=== PATIENT | male | born 1985 | race Caucasian/White ===

== ENCOUNTER 2016-12-04 22:05 | Emergency (ER) | payer BC, OTHER ==
[~2016-12-04] VITALS: Ht 177.8 cm; Wt 93.0 kg
[~2016-12-04 22:05] MED LIST: ATEN25TA PO; BACL10TA PO; BUTA1TAB46 PO; CIPR-225 PO; DOCU-143 PO; HYDR-3812 PO; HYDR-3820 PO; LISI-552 PO; LORA-790 PO; ONDAN4ODT PO; OXYC30TA80 PO
[2016-12-04] MEDS ORDERED: TETANUS,DIPTH,PERTUSS P/F (BOOSTRIX) 0.5 ML VIAL IM ONE (22:30)
[2016-12-04] MEDS ORDERED: CLINDAMYCIN 150 MG (CLEOCIN) CAP PO ONE (22:30)
[2016-12-04] MEDS ORDERED: CLIN300C11 PO (22:37)
--- NOTE | 2016-12-04 22:38 | ED General ---
General Chief Complaint: Bite-Animal/Human/Insect Stated Complaint: POSSIBLE BITE ON RIGHT HAND/SWELLING Nursing Triage Note: Pt. advises around 11am he reached into a tool box and shortly after noticed an area of swelling with one red spot that has since become progressively more swolle. He advises it is difficult to close his hand. Nursing Sepsis Screen: No Definite Risk Source of Information: Patient Exam Limitations: No Limitations History of Present Illness Time Seen by Provider: 22:16 Initial Comments Patient presents to the emergency room with pain and swelling in his right hand and forearm. He reports feeling a mild poke on the dorsum of his hand while reaching in a tool bag at about 11:00. He initially assumed he was poked by a nail. Throughout the day he developed progressive pain, erythema, and swelling of the right hand and forearm. There is a small erythematous med over the distal dorsal fourth metacarpal that appears suspicious for a bite. Pain has progressed throughout the day. Patient denies any itching. Allergies and Home Medications Allergies Coded Allergies: tramadol (Verified Allergy, Intermediate, hives, 12/04/16) Home Medications Clindamycin HCl 300 Mg Capsule, 300 MG PO QID, #40 Prescribed by: TAWANNA SANDS on 12/04/16 0812 Hydrocodone/Acetaminophen 1 Each Tablet, 1 EACH PO QID PRN for PAIN, (Reported) Constitutional: no symptoms reported, No fever EENTM: no symptoms reported Respiratory: no symptoms reported Cardiovascular: no symptoms reported Gastrointestinal: no symptoms reported Genitourinary: no symptoms reported Musculoskeletal: see HPI Skin: see HPI Psychiatric/Neurological: No Symptoms Reported Hematologic/Lymphatic: No Symptoms Reported Past Ilhkqiu-Ecvvvm-Qayvgr Hx Patient Social History Alcohol Use: Denies Use Recreational Drug Use: No Type Used: Cigarettes Recent Foreign Travel: No Contact w/Someone Who Travel: No Recent Infectious Disease Expo: No Recent Hopitalizations: No Immunizations Up To Date Tetanus Booster (TDap): Unknown PED Vaccines UTD: Yes Seasonal Allergies Seasonal Allergies: No Surgeries HX Surgeries: Yes (BONE MARROW DONATED, right ankle x2, right knee, right RCR) Surgeries: Tonsillectomy Respiratory Hx Respiratory Disorders: No Cardiovascular Hx Cardiac Disorders: Yes Cardiac Disorders: Hypertension Neurological Hx Neurological Disorders: Yes (CYST OF BRAIN--DX 2008--NO SURGERY--LAST CHECKED 2 YEARS AGO) Genitourinary Hx Genitourinary Disorders: No Gastrointestinal Hx Gastrointestinal Disorders: No Musculoskeletal Hx Musculoskeletal Disorders: Yes Musculoskeletal Disorders: Chronic Back Pain Endocrine Hx Endocrine Disorders: No HEENT HX ENT Disorders: Yes (PARTIAL DEAFNESS BILAT) Hearing Impairment: Hard of Hearing Cancer Hx Cancer: No Psychosocial Hx Psychiatric Problems: No Integumentary HX Skin/Integumentary Disorder: No Blood Transfusions Hx Blood Disorders: No Physical Exam Vital Signs Vital Sign - Last 12Hours 12/04/16 22:19 Temp 97.9 Pulse 86 Resp 14 B/P (MAP) 129/99 Pulse Ox 99 O2 Delivery Room Air Capillary Refill : Less Than 3 Seconds General Appearance: No Apparent Distress, WD/WN HEENT: PERRL/EOMI, Normal ENT Inspection Neck: Normal Inspection Respiratory: Lungs Clear, Normal Breath Sounds, No Accessory Muscle Use, No Respiratory Distress Cardiovascular: Regular Rate, Rhythm, No Edema, No Murmur Extremity: Other (small erythematous spot over the distal dorsal fourth metatarsal. The hand, fingers, and distal forearm are edematous, erythematous, and tender. Sensation and capillary refill of the hands are intact. Radial pulse intact. 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 Skin: Normal Color, Warm/Dry Laceration Repair : Suture Size: 5-0 Progress/Results/Core Measures Results/Orders My Orders Orders - TAWANNA JOLLEY MD Clindamycin Capsule (Cleocin Capsule) (12/04/16 22:30) Dipht,Pertuss(Acell),Tet Adult (Boostrix (12/04/16 22:30) Medications Given in ED Current Medications Medications Dose Ordered Sig/Alverto Route Start Time Stop Time Status Last Admin Dose Admin Clindamycin HCl 450 mg ONCE ONCE PO 12/04/16 22:30 12/04/16 22:33 DC 12/04/16 22:41 450 MG Diphtheria/ Tetanus/Acell Pertussis 0.5 ml ONCE ONCE IM 12/04/16 22:30 12/04/16 22:33 DC 12/04/16 22:41 0.5 ML Vital Signs/I&O Vital Sign - Last 12Hours 12/04/16 12/04/16 22:19 22:58 Temp 97.9 Pulse 86 86 Resp 14 14 B/P (MAP) 129/99 Pulse Ox 99 98 O2 Delivery Room Air Room Air Blood Pressure Mean: 109 Progress Note : Progress Note History and exam are suspicious for a spider bite. Patient was started on clindamycin and given a tetanus booster. Departure Impression Impression: Primary Impression: Spider bite wound Qualified Codes: T63.301A - Toxic effect of unspecified spider venom, accidental (unintentional), initial encounter Disposition: HOME, SELF-CARE Condition: Improved Departure-Patient Inst. Decision time for Depature: 22:25 Referrals: NO,LOCAL PHYSICIAN (PCP/Family) Primary Care Physician Patient Instructions: Spider Bites Add. Discharge Instructions: You are examination and history are consistent with spider bite. Keep the hand elevated to the level of the heart is much as possible to reduce swelling. Complete your antibiotic as prescribed to prevent secondary infection. Follow- up with your primary care provider soon as possible for monitoring of the wound. Return to the ER if symptoms worsen, especially if you lose feeling or develop a pale appearance to your fingers or you develop fever. Use Tylenol and /or ibuprofen for pain. All discharge instructions reviewed with patient and/or family. Voiced understanding. Scripts Clindamycin HCl (Clindamycin HCl) 300 Mg Capsule 300 MG PO QID, #40 CAP Prov: TAWANNA JOLLEY MD 12/04/16 TAWANNA JOLLEY MD Dec 04, 2016 22:38
[2016-12-04 22:58] VITALS: BP 129/99
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
== END 2016-12-04 22:58 | disposition home or self-care (01) ==
LOC: EDUNIT# 22:05 → ER 22:07
DX: S50.861A Insect bite (nonvenomous) of right forearm, initial encounter (principal); S60.468A Insect bite (nonvenomous) of other finger, initial encounter; I10 Essential (primary) hypertension; F17.210 Nicotine dependence, cigarettes, uncomplicated; W57.XXXA Bitten or stung by nonvenomous insect and other nonvenomous arthropods, initial encounter
CPT/HCPCS: 90471; 90715; 99283

== ENCOUNTER 2018-12-20 19:16 | Emergency (ER) | payer OTHER ==
[~2018-12-20] VITALS: Ht 177.8 cm; Wt 95.3 kg
[~2018-12-20 19:16] MED LIST changes: +ACHD5005 PO; +CLIN300C11 PO; -HYDR-3812 PO
[2018-12-20] MEDS ORDERED: KETOROLAC 30 MG/ML VIAL IM ONE (20:00)
[2018-12-20] MEDS ORDERED: predniSONE 20 MG TAB PO ONE (20:00)
[2018-12-20] MEDS ORDERED: PRD20T PO (20:05)
--- NOTE | 2018-12-20 20:05 | ED Back Pain ---
General Chief Complaint: Back Problems Stated Complaint: BACK PAIN Source of Information: Patient Exam Limitations: No Limitations History of Present Illness Date Seen by Provider: Dec 20, 2018 Time Seen by Provider: 19:49 Initial Comments This 33-year-old young man presents to the emergency room with complaints of exacerbation of chronic lower back pain. Patient has a history of herniated disks 2-3 years ago. That injury occurred when he slipped while carrying a heavy spool of wire. His present exacerbation of pain occurred after moving refrigerators with a friend. He denies any blunt traumatic injury. He is waiting for Workmen's Comp. to be settled before he does anything significant with workup or treatment of his chronic pain. He has not taken any NSAID medications. He states it is worse on his left side. He does not have any significant radicular symptoms. He denies any paresthesias, saddle paresthesia, bowel or bladder dysfunction, or lower extremity weakness. He takes hydrocodone 10 mg and baclofen 10 mg already. Allergies and Home Medications Allergies Coded Allergies: tramadol (Verified Allergy, Intermediate, hives, 12/04/16) Home Medications Clindamycin HCl 300 Mg Capsule, 300 MG PO QID Prescribed by: TAWANNA SANDS on 12/04/162236 Hydrocodone/Acetaminophen 1 Each Tablet, 1 EACH PO QID PRN for PAIN, (Reported) Prednisone 20 Mg Tab, 40 MG PO DAILY Prescribed by: TAWANNA SANDS on 12/20/182004 Patient Home Medication List Home Medication List Reviewed: Yes Review of Systems Constitutional: no symptoms reported EENTM: no symptoms reported Respiratory: no symptoms reported Cardiovascular: no symptoms reported Gastrointestinal: no symptoms reported Genitourinary: no symptoms reported Musculoskeletal: see HPI Skin: no symptoms reported Psychiatric/Neurological: No Symptoms Reported Past Nllyqal-Sjwycq-Uiexfg Hx Past Med/Social Hx: Reviewed Nursing Past Med/Soc Hx Patient Social History Alcohol Use: Denies Use Recreational Drug Use: No Type Used: Cigarettes Recent Foreign Travel: No Contact w/Someone Who Travel: No Recent Hopitalizations: No Immunizations Up To Date Tetanus Booster (TDap): Unknown PED Vaccines UTD: Yes Seasonal Allergies Seasonal Allergies: No Past Medical History Surgeries: Yes (BONE MARROW DONATED, right ankle x2, right ACL REPAIR) Tonsillectomy Respiratory: No Cardiac: Yes Hypertension Neurological: Yes (CYST OF BRAIN--DX 2008--NO SURGERY--LAST CHECKED 2 YEARS AGO) Genitourinary: No Gastrointestinal: No Musculoskeletal: Yes Chronic Back Pain Endocrine: No Hearing Impairment: Hard of Hearing Cancer: No Psychosocial: No Integumentary: No Blood Disorders: No Physical Exam Vital Signs Vital Signs - First Documented 12/20/18 12/20/18 19:46 20:20 Temp 96.6 Pulse 91 Resp 18 B/P (MAP) 135/90 (105) Pulse Ox 98 Capillary Refill : Height, Weight, BMI Height: 5'10.00" Weight: 205lbs. 0.0oz. 92.869719fu; 31.95 BMI Method:Stated General Appearance: No Apparent Distress, WD/WN HEENT: PERRL/EOMI, Normal ENT Inspection Neck: Normal Inspection Cardiovascular: Regular Rate, Rhythm, No Edema, No Murmur Respiratory: Lungs Clear, Normal Breath Sounds, No Accessory Muscle Use Gastrointestinal: Non Tender, Soft Back: Normal Inspection, Vertebral Tenderness (Lumbar spine), Other (Left lumbar paraspinous region) Neurologic/Psychiatric: Alert, Oriented x3, No Motor/Sensory Deficits, Normal Mood/Affect, employment interviewer II-XII Norm as Tested Skin: Normal Color, Warm/Dry Procedures/Interventions Suture Size: 5-0 Progress/Results/Core Measures Results/Orders My Orders Orders - TAWANNA JOLLEY MD Ketorolac Injection (Toradol Injection) (12/20/18 20:00) Prednisone Tablet (Deltasone Tablet) (12/20/18 20:00) Im/Sub-Q Injection Non-Ab Ed (12/20/18 ) Vital Signs/I&O 12/20/18 12/20/18 19:46 20:20 Temp 96.6 96.6 Pulse 91 89 Resp 18 18 B/P (MAP) 135/90 (105) 130/89 (103) Pulse Ox 98 Progress Progress Note : Progress Note Patient was treated with Toradol and prednisone. Departure Impression Primary Impression: Low back pain Qualified Codes: M54.41 - Lumbago with sciatica, right side; M54.42 - Lumbago with sciatica, left side; G89.29 - Other chronic pain Additional Impression: Chronic lumbar radiculopathy Disposition: 01 HOME, SELF-CARE Condition: Improved Departure-Patient Inst. Decision time for Depature: 20:02 Referrals: ANIBAL JOEL MD (PCP/Family) Primary Care Physician Patient Instructions: Low Back Pain in Adults, Radiculopathy Add. Discharge Instructions: You may add NSAID therapy such as ibuprofen up to 600 mg every 6 hours or naproxen up to 500 mg twice daily to your current pain management. Use prednisone as prescribed to help reduce inflammation and speed recovery. Take NSAID medications and prednisone with food or milk to avoid stomach upset. Take prednisone early in the day to avoid sleep disturbance if possible. Follow-up with a discharge specialist as soon as possible for further evaluation. Return to the emergency room promptly if you have worsening symptoms that included leg weakness, loss of bowel or bladder control, numbness in your groin, or escalating pain. Avoid heavy lifting or strenuous pushing, pulling, or bending until you are cleared by qualified healthcare provider. All discharge instructions reviewed with patient and/or family. Voiced understanding. Scripts Prednisone (Prednisone) 20 Mg Tab 40 MG PO DAILY, #6 TAB 0 Refills Prov: TAWANNA JOLLEY MD 12/20/18 Copy Copies To 1: ANIBAL JOEL MD, JOSHUA T MD Dec 20, 2018 20:05
[2018-12-20 20:20] VITALS: BP 130/89
== END 2018-12-20 20:25 | disposition home or self-care (01) ==
LOC: EDUNIT# 19:16 → ER 19:17
DX: M54.16 Radiculopathy, lumbar region (principal); M51.36 Other intervertebral disc degeneration, lumbar region; I10 Essential (primary) hypertension; Z88.5 Allergy status to narcotic agent; Z90.89 Acquired absence of other organs
CPT/HCPCS: 96372; 99284

== ENCOUNTER 2019-11-07 10:47 | Emergency (ER) | payer OTHER ==
[~2019-11-07] VITALS: Ht 177 cm; Wt 98.1 kg
[~2019-11-07 10:47] MED LIST changes: +ACHYD1T PO; -HYDR-3820 PO; +OXYC-527 PO; -OXYC30TA80 PO; +PRD20T PO
--- OUTSIDE RECORDS SUMMARY | 2019-11-07 10:53 | XMS REPORT ---
Author Author Imer VILLATORO [address] Address [address] [place] [address] Care Team Providers Care Model Photographers' Name Role Phone RASHAAD VILLATORO Unavailable PROBLEMS Type Condition ICD9-CM Code NMG21-AA Code Onset Dates Condition S tatus SNOMED Code Problem Unspecified genital herpes 054.10 Act yahaira 67838439 Problem Opioid use disorder, severe, dependence F11.20 Active 33789646 Problem Health examination of defined subpopulation V70.5 Active 915851601 Problem Contact dermatitis and other eczema, due to unspecified ca use 692.9 Active 12557118 ALLERGIES No Information ENCOUNTERS Encounter Location Date Diagnosis [facility] [address] [facility]] [id number] [address] [place] [phone] Feb, Opioid use disorder, severe, dependence F11.20 [facility] [address] [facility]NOTE [facility]] [id number] [address] [place] [phone] Feb, [facility] [address] [facility]] [id number] [address] [place] [phone] Sep, [facility] [address] [facility]] [id number] [address] [place] [phone] Sep, [facility] [address] [facility]] [id number] [address] [place] [phone] Dec, [facility] [address] [facility]] [id number] [address] [place] [phone] Dec, [facility] [address] [facility]] [id number] [address] [place] [phone] Aug, [facility] [address] [facility]] [id number] [address] [place] [phone] Aug, [facility] [address] [facility]] [id number] [address] [place] [phone] Jun, [facility] [address] [facility]] [id number] [address] [place] [phone] Jun, [facility] [address] [facility] [id number] [place], [place] [id number] May, [facility] [address] [facility]] [id number] [address] [place] [phone] May, [facility] [address] [facility] [id number] [place], [place] [id number] Nov, [facility] [address] [facility]] [id number] [address] [place] [phone] May, IMMUNIZATIONS No Known Immunizations SOCIAL HISTORY Never Assessed REASON FOR VISIT PLAN OF CARE VITAL SIGNS MEDICATIONS No Known Medications RESULTS No Results PROCEDURES No Known procedures INSTRUCTIONS MEDICATIONS ADMINISTERED No Known Medications MEDICAL (GENERAL) HISTORY Type Description Date Medical History hypertension Surgical History RT ankle x2 Surgical History hernia Surgical History RT ankle Surgical History back surgery ( herniated disc x3) Hospitalization History asthma ( as a child)
--- OUTSIDE RECORDS SUMMARY | 2019-11-07 10:53 | XMS REPORT ---
Author Author Imer ALFARO Organization [facility] Address [address] [place] [address] Care Team Providers Care Manager Creative Services Name Role Phone ANGELINA RAMESH Unavailable PROBLEMS Type Condition ICD9-CM Code BQR99-UK Code Onset Dates Condition S tatus SNOMED Code Problem Unspecified genital herpes 054.10 Act yahaira 07115029 Problem Opioid use disorder, severe, dependence F11.20 Active 68206499 Problem Health examination of defined subpopulation V70.5 Active 655671003 Problem Contact dermatitis and other eczema, due to unspecified ca use 692.9 Active 62358957 ALLERGIES No Information ENCOUNTERS Encounter Location Date Diagnosis [facility] [address] [facility] [id number] [address] [place] [phone] Feb, Opioid use disorder, severe, dependence F11.20 [facility] [address] [facility] [id number] [address] [place] [phone] Feb, [facility] [address] [facility] [id number] [address] [place] [phone] Sep, [facility] [address] [facility] [id number] [address] [place] [phone] Sep, [facility] [address] [facility] [id number] [address] [place] [phone] Dec, [facility] [address] [facility] [id number] [address] [place] [phone] Dec, [facility] [address] [facility] [id number] [address] [place] [phone] Aug, [facility] [address] [facility] [id number] [address] [place] [phone] Aug, [facility] [address] [facility] [id number] [address] [address] Jun, [facility] [address] [facility] [id number] [address] [address] Jun, [facility] [address] [facility] [id number] [place], [place] [id number] May, [facility] [address] [facility] [id number] [address] [address] May, [facility] [address] [facility] [id number] [place], [place] [id number] Nov, [facility] [address] [facility] [id number] [address] [address] May, IMMUNIZATIONS No Known Immunizations SOCIAL HISTORY Never Assessed REASON FOR VISIT PLAN OF CARE VITAL SIGNS Height 70 in 2013-12-14 Weight 199 lbs 2013-12-14 Temperature 98.5 degrees Fahrenheit 2013-12-14 Heart Rate 86 bpm 2013-12-14 Respiratory Rate 16 2013-12-14 Blood pressure systolic 120 mmHg 2013-12-14 Blood pressure diastolic 64 mmHg 2013-12-14 MEDICATIONS No Known Medications RESULTS No Results PROCEDURES Procedure Date Ordered Result Body Site THER/PROPH/DIAG INJ, SC/IM December 14, 2013 INJ METHYLPRDNISOLONE ACTAT 80 MG December 14, 2013 INSTRUCTIONS MEDICATIONS ADMINISTERED No Known Medications MEDICAL (GENERAL) HISTORY Type Description Date Medical History hypertension Surgical History RT ankle x2 Surgical History hernia Surgical History RT ankle Surgical History back surgery ( herniated disc x3) Hospitalization History asthma ( as a child)
--- OUTSIDE RECORDS SUMMARY | 2019-11-07 10:53 | XMS REPORT ---
Author Author Imer Turner Doctor Organization [facility] Address Unknown Phone Unavailable Care Team Providers Care Tax Examiner Name Role Phone Migration, Doctor Unavailable Unavailable PROBLEMS Type Condition ICD9-CM Code VPS42-XO Code Onset Dates Condition S tatus SNOMED Code Problem Contact dermatitis and other eczema, due to unspecified ca use 692.9 Active 34266229 Problem Unspecified genital herpes 054.10 Act yahaira 09736481 Problem Health examination of defined subpopulation V70.5 Active 340201620 ALLERGIES No Information ENCOUNTERS Encounter Location Date Diagnosis [facility] [address] [facility] [id number] [address] [place] [phone] Sep, [facility] [address] [facility] [id number] [address] [place] [phone] Sep, [facility] [address] [facility] [id number] [address] [place] [phone] Dec, [facility] [address] [facility] [id number] [address] [place] [phone] Dec, [facility] [address] [facility] [id number] [address] [place] [phone] Aug, [facility] [address] [facility] [id number] [address] [place] [phone] Aug, [facility] [address] [facility] [id number] [address] [place] [phone] Jun, [facility] [address] [facility] [id number] [address] [place] [phone] Jun, [facility] [address] [facility] [id number] [place], [place] [id number] May, [facility] [address] [facility] [id number] [address] [place] [phone] May, [facility] [address] [facility] [id number] [place] [id number] Nov, [facility] [address] [facility] [id number] [address] [place] [address] May, IMMUNIZATIONS No Known Immunizations SOCIAL HISTORY Never Assessed REASON FOR VISIT [facility] PLAN OF CARE VITAL SIGNS MEDICATIONS Medication Instructions Dosage Frequency Start Date End Date Duration S natan Hydrocodone-Acetaminophen 10-325 mg take 1 tablet by oral route every 6 hours as needed for pain Dec, Active Lisinopril 20 mg take 1 tablet (20 mg) by oral route o nce daily Aug, Active Acyclovir 800 mg take 1 Tablet by Oral route 1 time per day Aug, Active RESULTS No Results PROCEDURES No Known procedures INSTRUCTIONS MEDICATIONS ADMINISTERED No Known Medications
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
--- OUTSIDE RECORDS SUMMARY | 2019-11-07 10:53 | XMS REPORT ---
Author Author Imer Crouch Organization [facility] Address [address] [place] [address] Care Team Providers Care Professor Of Environmental Engineering Name Role Phone ALFONSO Crouch Unavailable PROBLEMS Type Condition ICD9-CM Code EAU40-VX Code Onset Dates Condition S tatus SNOMED Code Problem Unspecified genital herpes 054.10 Act yahaira [id number] Problem Opioid use disorder, severe, dependence F11.20 Active 20798435 Problem Health examination of defined subpopulation V70.5 Active 797665377 Problem Contact dermatitis and other eczema, due to unspecified ca use 692.9 Active [id number] ALLERGIES No Information ENCOUNTERS Encounter Location Date Diagnosis [facility] [address] [address] Feb, Opioid use disorder, severe, dependence F11.20 [facility] [address] [address] Feb, [facility] [address] [address] Sep, [facility] [address] [address] Sep, [facility] [address] [address] Dec, [facility] [address] [address] Dec, [facility] [address] [address] Aug, [facility] [address] [address] Aug, [facility] [address] [address] Jun, [facility] [address] [id number] [place] [address] Jun, [facility] [address] [id number] [place] [id number] May, [facility] [address] [facility] [place] [address] May, [facility] [address] [facility] [place] [id number] Nov, [facility] [address] [facility] [place] [address] May, IMMUNIZATIONS No Known Immunizations SOCIAL HISTORY Never Assessed REASON FOR VISIT PLAN OF CARE VITAL SIGNS Height 70 in 2013-08-30 Weight 206 lbs 2013-08-30 Temperature 97.7 degrees Fahrenheit 2013-08-30 Heart Rate 78 bpm 2013-08-30 Respiratory Rate 18 2013-08-30 Blood pressure systolic 124 mmHg 2013-08-30 Blood pressure diastolic 84 mmHg 2013-08-30 MEDICATIONS No Known Medications RESULTS No Results PROCEDURES Procedure Date Ordered Result Body Site CHYLMD TRACH, DNA, AMP PROBE August 30, 2013 INSTRUCTIONS MEDICATIONS ADMINISTERED No Known Medications MEDICAL (GENERAL) HISTORY Type Description Date Medical History hypertension Surgical History RT ankle x2 Surgical History hernia Surgical History RT ankle Surgical History back surgery ( herniated disc x3) Hospitalization History asthma ( as a child)
--- NOTE | 2019-11-07 11:15 | NUR ---
NOTIFIED PT THAT THE PRROVIDERS WAS WITH A CRITICAL PT AND THERE MIGHT BE A LONG WAIT TIME.
[2019-11-07] MEDS ORDERED: OXYC-565 PO (11:22)
--- NOTE | 2019-11-07 11:28 | NUR ---
PT REQUEST BLOOD SUGAR TO BE TAKEN BECAUSE HIS MOM IS A DIABETIC .
[2019-11-07] MEDS ORDERED: ALPRAZolam 0.5 MG (XANAX) TAB PO SCH (11:45)
--- NOTE | 2019-11-07 12:09 | NUR ---
NOTIFIED PT AGAIN WE NEEDED A URINE SAMPLE.
[2019-11-07 12:10] LABS: BASOPHILS % (AUTO) 0 % (0-10); EOSINOPHILS # (AUTO) 0.1 10^3/uL (0.0-0.3); EOSINOPHILS % (AUTO) 1 % (0-10); HEMATOCRIT 43 % (40-54); HEMOGLOBIN 14.9 G/DL (13.3-17.7); LYMPHOCYTES # (AUTO) 1.2 X 10^3 (1.0-4.0); LYMPHOCYTES % (AUTO) 13 % (12-44); MEAN CORPUSCULAR HEMOGLOBIN 31 PG (25-34); MEAN CORPUSCULAR HGB CONC 35 G/DL (32-36); MEAN CORPUSCULAR VOLUME 88 FL (80-99); MONOCYTES # (AUTO) 0.3 X 10^3 (0.0-1.0); MONOCYTES % (AUTO) 4 % (0-12); NEUTROPHILS # (AUTO) 7.4 X 10^3 (1.8-7.8); NEUTROPHILS % (AUTO) 83 % (42-75); PLATELET COUNT 284 10^3/uL (130-400); RED CELL DISTRIBUTION WIDTH 12.3 % (10.0-14.5); WHITE BLOOD COUNT 8.9 10^3/uL (4.3-11.0)
[2019-11-07 12:19] LABS: ALBUMIN 4.7 GM/DL (3.2-4.5)
[2019-11-07 12:20] LABS: CHLORIDE 104 MMOL/L (98-107); POTASSIUM 3.8 MMOL/L (3.6-5.0); SODIUM 140 MMOL/L (135-145)
[2019-11-07 12:21] LABS: CALCIUM 9.2 MG/DL (8.5-10.1)
[2019-11-07 12:22] LABS: GLUCOSE 121 MG/DL (70-105); TOTAL PROTEIN 7.4 GM/DL (6.4-8.2)
[2019-11-07 12:23] LABS: CARBON DIOXIDE 22 MMOL/L (21-32)
[2019-11-07 12:24] LABS: BILIRUBIN,TOTAL 0.4 MG/DL (0.1-1.0)
[2019-11-07 12:26] LABS: ALKALINE PHOSPHATASE 56 U/L (40-136); CREATININE SERUM 0.71 MG/DL (0.60-1.30); GFR ESTIMATED > 60
[2019-11-07 12:27] LABS: BUN/CREATININE RATIO 18
[2019-11-07 12:29] LABS: ALANINE AMINOTRANSFERASE 35 U/L (0-55)
--- NOTE | 2019-11-07 12:33 | ED General ---
General Chief Complaint: Dizziness/Syncope Stated Complaint: HANDS AND BODY FEEL NUMB Nursing Triage Note: States yesterday he was having some dizziness and numbess in his arms and hands along with shaking. Today he woke up with the same symtoms. No hx of anxiety but is under pressure with 4 children including a newboorn. . Nursing Sepsis Screen: No Definite Risk Source of Information: Patient Exam Limitations: No Limitations History of Present Illness Date Seen by Provider: November 07, 2019 Time Seen by Provider: 12:28 Initial Comments To ER with reports of numbness and tingling in bilateral hands. This was sudden onset yesterday. When it started it was shortly thereafter followed by whole body shaking. He states he is under a bit of stress because of a baby. Happened again this morning. At this time, after 0.5 mg of lorazepam he feels back to normal. He would also like to be checked for STDs because he has a small red bump on the left side dorsal aspect of the penis that is not itchy or painful Timing/Duration: 1-2 Days Severity: Moderate Associated Systoms: Denies Symptoms Allergies and Home Medications Allergies Coded Allergies: tramadol (Verified Allergy, Intermediate, hives, 12/04/16) Home Medications Hydrocodone Bit/Acetaminophen 1 Each Tablet, 1 EACH PO QID PRN for PAIN, (Reported) Patient Home Medication List Home Medication List Reviewed: Yes Review of Systems Review of Systems Constitutional: see HPI EENTM: see HPI Respiratory: no symptoms reported Cardiovascular: no symptoms reported Genitourinary: see HPI Musculoskeletal: no symptoms reported Skin: no symptoms reported Psychiatric/Neurological: See HPI Hematologic/Lymphatic: No Symptoms Reported Immunological/Allergic: no symptoms reported Past Nuifuwi-Gztlvz-Hvqocs Hx Patient Social History Alcohol Use: Denies Use Recreational Drug Use: No Smoking Status: Current Everyday Smoker Type Used: Cigarettes Recent Foreign Travel: No Contact w/Someone Who Travel: No Recent Infectious Disease Expo: No Recent Hopitalizations: No Immunizations Up To Date Tetanus Booster (TDap): Unknown PED Vaccines UTD: Yes Seasonal Allergies Seasonal Allergies: No Past Medical History Surgeries: Yes (BONE MARROW DONATED, right ankle x2, right ACL REPAIR) Tonsillectomy Respiratory: No Cardiac: Yes Hypertension Neurological: Yes (CYST OF BRAIN--DX 2008--NO SURGERY--LAST CHECKED 2 YEARS AGO) Genitourinary: No Gastrointestinal: No Musculoskeletal: Yes Chronic Back Pain Endocrine: No Hearing Impairment: Hard of Hearing Cancer: No Psychosocial: No Integumentary: No Blood Disorders: No Physical Exam Vital Signs Vital Signs - First Documented 11/07/19 11:10 Temp 37.0 Pulse 81 Resp 16 B/P (MAP) 144/109 (121) Pulse Ox 98 O2 Delivery Room Air Capillary Refill : Less Than 3 Seconds Height, Weight, BMI Height: 5'10.00" Weight: 210lbs. 0oz. [id number]; 31.00 BMI Method:Stated General Appearance: No Apparent Distress, WD/WN Eyes: Bilateral Eye Normal Inspection, Bilateral Eye PERRL, Bilateral Eye EOMI HEENT: PERRL/EOMI, TMs Normal Neck: Full Range of Motion, Normal Inspection Respiratory: No Accessory Muscle Use, No Respiratory Distress Cardiovascular: Regular Rate, Rhythm, Normal Peripheral Pulses Gastrointestinal: Normal Bowel Sounds, Non Tender, Soft Genital/Rectal: Other (there is a 1-2 mm erythematous papule left side of the shaft of the penis dorsally. No ulceration) Extremity: Normal Capillary Refill, Normal Inspection Neurologic/Psychiatric: Alert, Oriented x3 Skin: Normal Color, Warm/Dry Procedures/Interventions Suture Size: 5-0 Progress/Results/Core Measures Suspected Sepsis Recent Fever Within 48 Hours: No Infection Criteria Present: None New/Unexplained Altered Menta: No Sepsis Screen: No Definite Risk SIRS Temperature: Pulse: 81 Respiratory Rate: 16 Laboratory Tests 11/07/19 12:03: White Blood Count 8.9 Blood Pressure 144 /109 Mean: 121 Laboratory Tests 11/07/19 12:03: Creatinine 0.71, Platelet Count 284, Total Bilirubin 0.4 Results/Orders Lab Results Laboratory Tests Test 11/07/19 11:26 11/07/19 12:03 Range/Units Glucometer 130 H 70-110 MG/DL White Blood Count 8.9 4.3-11.0 10^3/uL Red Blood Count 4.88 4.35-5.85 10^6/uL Hemoglobin 14.9 13.3-17.7 G/DL Hematocrit 43 40-54 % Mean Corpuscular Volume 88 80-99 FL Mean Corpuscular Hemoglobin 31 25-34 PG Mean Corpuscular Hemoglobin Concent 35 32-36 G/DL Red Cell Distribution Width 12.3 10.0-14.5 % Platelet Count 284 130-400 10^3/uL Mean Platelet Volume 9.0 7.4-10.4 FL Neutrophils (%) (Auto) 83 H 42-75 % Lymphocytes (%) (Auto) 13 12-44 % Monocytes (%) (Auto) 4 0-12 % Eosinophils (%) (Auto) 1 0-10 % Basophils (%) (Auto) 0 0-10 % Neutrophils # (Auto) 7.4 1.8-7.8 X 10^3 Lymphocytes # (Auto) 1.2 1.0-4.0 X 10^3 Monocytes # (Auto) 0.3 0.0-1.0 X 10^3 Eosinophils # (Auto) 0.1 0.0-0.3 10^3/uL Basophils # (Auto) 0.0 0.0-0.1 10^3/uL Sodium Level 140 135-145 MMOL/L Potassium Level 3.8 3.6-5.0 MMOL/L Chloride Level 104 98-107 MMOL/L Carbon Dioxide Level 22 21-32 MMOL/L Anion Gap 14 5-14 MMOL/L Blood Urea Nitrogen 13 7-18 MG/DL Creatinine 0.71 0.60-1.30 MG/DL Estimat Glomerular Filtration Rate > 60 BUN/Creatinine Ratio 18 Glucose Level 121 H 70-105 MG/DL Calcium Level 9.2 8.5-10.1 MG/DL Corrected Calcium 8.5-10.1 MG/DL Total Bilirubin 0.4 0.1-1.0 MG/DL Alkaline Phosphatase 56 40-136 U/L Total Protein 7.4 6.4-8.2 GM/DL Albumin 4.7 H 3.2-4.5 GM/DL My Orders Orders - DARION MURPHY APRN Cbc With Automated Diff (11/07/19 11:45) Comprehensive Metabolic Panel (11/07/19 11:45) Ua Culture If Indicated (11/07/19 11:45) Drug Screen Stat (Urine) (11/07/19 11:45) Alprazolam Tablet (Xanax Tablet) (11/07/19 11:45) Neis Shun Dna Urine Test (11/07/19 12:26) Chlamydia Trachomatis Urine (11/07/19 12:26) Syphilis Antibody Screen (11/07/19 12:26) Vital Signs/I&O 11/07/19 11:10 Temp 37.0 Pulse 81 Resp 16 B/P (MAP) 144/109 (121) Pulse Ox 98 O2 Delivery Room Air Capillary Refill : Less Than 3 Seconds Blood Pressure Mean: 121 Point of Care Testing Finger Stick Blood Glucose: 130 Departure Impression Primary Impression: Stress Disposition: HOME, SELF-CARE Condition: Stable Departure-Patient Inst. Decision time for Depature: 12:33 Referrals: TYREL DICKENS MD (PCP/Family) Primary Care Physician Patient Instructions: Stress Add. Discharge Instructions: 1. Return to ER for any concerns. Follow-up with your doctor next week All discharge instructions reviewed with patient and/or family. Voiced understanding. Scripts Hydroxyzine HCl (Hydroxyzine HCl) 25 Mg Tablet 25 MG PO Q4H PRN for ANXIETY, #20 TAB Prov: DARION MURPHY APRN 11/07/19 DARION MURPHY APRN November 07, 2019 12:33
[2019-11-07] MEDS ORDERED: HYDR-700 PO (12:34)
[2019-11-07 12:37] LABS: BILIRUBIN,URINE NEGATIVE (NEGATIVE); CLARITY,URINE CLEAR; COLOR,URINE YELLOW; GLUCOSE, URINE (UA) NEGATIVE (NEGATIVE); KETONES,URINE NEGATIVE (NEGATIVE); LEUKOCYTE ESTERASE ,URINE NEGATIVE (NEGATIVE); NITRITE,URINE NEGATIVE (NEGATIVE); PROTEIN,URINE NEGATIVE (NEGATIVE)
[2019-11-07 12:45] LABS: BACTERIA,URINE TRACE /HPF; RBC,URINE RARE /HPF; WBC,URINE RARE /HPF
[2019-11-07 12:58] LABS: AMPHETAMINE SCREEN, URINE POSITIVE (NEGATIVE); BARBITURATE SCREEN URINE NEGATIVE (NEGATIVE); BENZODIAZEPINES SCREEN URINE NEGATIVE (NEGATIVE); CANNABINOID SCREEN, URINE POSITIVE (NEGATIVE); COCAINE SCREEN URINE NEGATIVE (NEGATIVE); METHADONE STAT NEGATIVE (NEGATIVE); METHAMPHETAMINE SCREEN URINE S NEGATIVE (NEGATIVE); OPIATE SCREEN URINE POSITIVE (NEGATIVE); OXYCODONE STAT NEGATIVE (NEGATIVE); PROPOXYPHENE STAT NEGATIVE (NEGATIVE); TRICYCLIC ANTIDEPRESSANTS SCRE NEGATIVE (NEGATIVE)
[2019-11-07 13:06] VITALS: BP 119/94
== END 2019-11-07 13:06 | disposition home or self-care (01) ==
LOC: EDUNIT# 10:47 → ER 10:49
DX: F43.9 Reaction to severe stress, unspecified (principal); F17.210 Nicotine dependence, cigarettes, uncomplicated; Z88.5 Allergy status to narcotic agent
CPT/HCPCS: 36415; 80053; 80306; 81000; 82962; 85025; 86780; 87491; 87591

== ENCOUNTER 2020-04-20 18:04 | Emergency (ER) | payer OTHER ==
[~2020-04-20] VITALS: Ht 177 cm; Wt 97.5 kg
[~2020-04-20 18:04] MED LIST changes: +HYDR-700 PO; +OXYC-565 PO
[2020-04-20] MEDS ORDERED: NS IV 1000 ML 1,000 ML IV SCH (18:45)
[2020-04-20] MEDS ORDERED: NS IV 1000 ML 1,000 ML ONE (18:46)
[2020-04-20] MEDS ORDERED: RT-ALBUTEROL INHALER HFA (VENTOLIN HFA) 18 GM IH ONE (18:47)
[2020-04-20] MEDS ORDERED: HYOSCYAMINE 0.125 MG (LEVSIN) TAB ONE (18:49)
--- NOTE | 2020-04-20 19:00 | ED Cardiac General ---
History of Present Illness General Chief Complaint: Chest Pain Stated Complaint: CHEST PRESSURE/WHEEZING Nursing Triage Note: PT REPORTS CP/TIGHTNESS THAT IS WORSE WITH INSPIRATION AND SOA STARTING LAST NIGHT. PT REPORTS DIAHRREA X 2 DAYS. PT REPORTS HIS AUNT WHO HE SAW ON HALLOWEEN IS COVID POS AND ADMITTED UPSTAIRS. Source: patient Exam Limitations: no limitations History of Present Illness Date Seen by Provider: Apr 20, 2020 Time Seen by Provider: 18:59 Initial Comments ER with chest tightness and shortness of breath began last night. He had diar shelia x2 days about 6-7 episodes per day of watery nonbloody diarrhea. He has diffuse abdominal cramping. No fevers. Does smoke about less than 1 pack of cigarettes per day. He has had some close contact with Covid positive patient. Timing/Duration: changing over time Severity: moderate Location: central Activities at Onset: none NTG SL [employer] ROOM: No ASA po [employer] ROOM: No Associated Systoms: Denies Symptoms Allergies and Home Medications Allergies Coded Allergies: tramadol (Verified Allergy, Intermediate, hives, 12/04/16) Home Medications Hydrocodone Bit/Acetaminophen 1 Each Tablet, 1 EACH PO QID PRN for PAIN, (Reported) Hydroxyzine HCl 25 Mg Tablet, 25 MG PO Q4H PRN for ANXIETY Prescribed by: DARION MURPHY on 11/07/19 1234 Patient Home Medication List Home Medication List Reviewed: Yes Review of Systems Review of Systems Constitutional: see HPI EENTM: No Symptoms Reported Respiratory: See HPI, Cough, Shortness of Air Cardiovascular: See HPI; Denies Chest Pain Gastrointestinal: No Symptoms Reported Genitourinary: No Symptoms Reported Musculoskeletal: no symptoms reported Skin: no symptoms reported Psychiatric/Neurological: No Symptoms Reported Endocrine: No Symptoms Reported Hematologic/Lymphatic: No Symptoms Reported Past Tcnjaqd-Xvgqcw-Peqwis Hx Patient Social History Alcohol Use: Denies Use Recreational Drug Use: No Smoking Status: Current Everyday Smoker Type Used: Cigarettes Recent Foreign Travel: No Contact w/Someone Who Travel: No Recent Infectious Disease Expo: No Recent Hopitalizations: No Immunizations Up To Date Tetanus Booster (TDap): Unknown PED Vaccines UTD: Yes Seasonal Allergies Seasonal Allergies: No Past Medical History Surgeries: Yes (BONE MARROW DONATED, right ankle x2, right ACL REPAIR) Tonsillectomy Respiratory: No Cardiac: Yes Hypertension Neurological: Yes (CYST OF BRAIN--DX 2008--NO SURGERY--LAST CHECKED 2 YEARS AGO) Genitourinary: No Gastrointestinal: No Musculoskeletal: Yes Chronic Back Pain Endocrine: No Hearing Impairment: Hard of Hearing Cancer: No Psychosocial: No Integumentary: No Blood Disorders: No Physical Exam Vital Signs Vital Signs - First Documented 04/20/20 18:34 Temp 36.3 Pulse 93 Resp 16 B/P (MAP) 148/102 (117) Pulse Ox 93 Capillary Refill : Less Than 3 Seconds Height, Weight, BMI Height: 5'10.00" Weight: 210lbs. 0oz. 95.749041ek; 31.00 BMI Method:Stated General Appearance: No Apparent Distress, WD/WN Respiratory: Normal Breath Sounds, No Accessory Muscle Use, No Respiratory Distress; No Wheezing; Other (Sats are 93% on room air) Cardiovascular: Regular Rate, Rhythm, Normal Peripheral Pulses Gastrointestinal: Normal Bowel Sounds, Non Tender, Soft Extremity: Normal Capillary Refill, Normal Inspection Neurologic/Psychiatric: Alert, Oriented x3 Skin: Normal Color, Warm/Dry Procedures/Interventions Suture Size: 5-0 Progress/Results/Core Measures Results/Orders Lab Results Laboratory Tests Test 04/20/20 18:50 Range/Units White Blood Count 7.5 4.3-11.0 10^3/uL Red Blood Count 4.29 L 4.30-5.52 10^6/uL Hemoglobin 13.4 13.3-17.7 g/dL Hematocrit 39 L 40-54 % Mean Corpuscular Volume 91 80-99 fL Mean Corpuscular Hemoglobin 31 25-34 pg Mean Corpuscular Hemoglobin Concent 34 32-36 g/dL Red Cell Distribution Width 11.9 10.0-14.5 % Platelet Count 344 130-400 10^3/uL Mean Platelet Volume 8.9 L 9.0-12.2 fL Immature Granulocyte % (Auto) 0 % Neutrophils (%) (Auto) 70 42-75 % Lymphocytes (%) (Auto) 25 12-44 % Monocytes (%) (Auto) 4 0-12 % Eosinophils (%) (Auto) 1 0-10 % Basophils (%) (Auto) 0 0-10 % Neutrophils # (Auto) 5.2 1.8-7.8 10^3/uL Lymphocytes # (Auto) 1.9 1.0-4.0 10^3/uL Monocytes # (Auto) 0.3 0.0-1.0 10^3/uL Eosinophils # (Auto) 0.1 0.0-0.3 10^3/uL Basophils # (Auto) 0.0 0.0-0.1 10^3/uL Immature Granulocyte # (Auto) 0.0 0.0-0.1 10^3/uL D-Dimer 0.32 0.00-0.49 UG/ML Sodium Level 142 135-145 MMOL/L Potassium Level 3.6 3.6-5.0 MMOL/L Chloride Level 105 98-107 MMOL/L Carbon Dioxide Level 25 21-32 MMOL/L Anion Gap 12 5-14 MMOL/L Blood Urea Nitrogen 12 7-18 MG/DL Creatinine 0.81 0.60-1.30 MG/DL Estimat Glomerular Filtration Rate > 60 BUN/Creatinine Ratio 15 Glucose Level 119 H 70-105 MG/DL Calcium Level 8.8 8.5-10.1 MG/DL Corrected Calcium 8.4 L 8.5-10.1 MG/DL Total Bilirubin 0.4 0.1-1.0 MG/DL Aspartate Amino Transf (AST/SGOT) 17 5-34 U/L Alanine Aminotransferase (ALT/SGPT) 23 0-55 U/L Alkaline Phosphatase 45 40-136 U/L Troponin I < 0.028 <0.028 NG/ML C-Reactive Protein High Sensitivity 0.14 0.00-0.50 MG/DL Total Protein 6.7 6.4-8.2 GM/DL Albumin 4.5 3.2-4.5 GM/DL Coronavirus 2019 ([place]) Negative Negative My Orders Orders - DARION MURPHY APRN Hs C Reactive Protein (04/20/20 18:44) Chest 1 View, Ap/Pa Only (04/20/20 18:44) Covid 19 Inhouse Test (04/20/20 18:44) Cbc With Automated Diff (04/20/20 18:44) Comprehensive Metabolic Panel (04/20/20 18:44) Albuterol Inhaler (Ventolin Hfa) (04/20/20 22:00) Ns Iv 1000 Ml (Sodium Chloride 0.9%) (04/20/20 18:45) Ns Iv 1000 Ml (Sodium Chloride 0.9%) (04/20/20 18:46) Albuterol Inhaler (Ventolin Hfa) (04/20/20 18:47) Hyoscyamine Sl Tablet (Levsin Sl Tablet) (04/20/20 18:49) Fibrin Degradation Products (04/20/20 18:53) Coronavirus Sars-Cov-2 So 2018 (04/20/20 19:31) Influenza A And B Antigens (04/20/20 19:31) Troponin I (04/20/20 20:04) Medications Given in ED Current Medications Medications Dose Ordered Sig/Alverto Route Start Time Stop Time Status Last Admin Dose Admin Hyoscyamine Sulfate 0.125 mg STK-MED ONCE .ROUTE 04/20/20 18:49 04/20/20 18:50 DC 04/20/20 18:53 0.125 MG Vital Signs/I&O 04/20/20 18:34 Temp 36.3 Pulse 93 Resp 16 B/P (MAP) 148/102 (117) Pulse Ox 93 Blood Pressure Mean: 117 Diagnostic Imaging Diagonstic Imaging: Xray Plain Films/CT/US/NM/MRI: chest Comments NAME: CLARICE SIFUENTES [facility] REC#: [id number] PT STATUS: REG ER : 1985 PHYSICIAN: DARION MURPHY APRN ADMIT DATE: 04/20/20/ER Draft Date of Exam:04/20/20 CHEST 1 VIEW, AP/PA ONLY INDICATION: Fever and chills. EXAMINATION: A single view of the chest was obtained. FINDINGS: There is normal heart size and vascularity. The lungs are clear. There is no effusion or pneumothorax. There is no bony abnormality. IMPRESSION: Normal chest. Dictated on workstation # [id number] Dict: 04/20/201924 Trans: 04/20/201928 [facility] [id number] Interpreted by: DREW JONES MD Electronically signed by: Departure Communication (Admissions) 2033-States he just feels tired. No shortness of breath. HR 80, SpO2 94-98% room air during visit . Impression Primary Impression: Chest pain Additional Impression: Person under investigation for COVID-19 Disposition: HOME, SELF-CARE Condition: Stable Departure-Patient Inst. Decision time for Depature: 20:32 Referrals: TYREL DICKENS MD (PCP/Family) Primary Care Physician Patient Instructions: Chest Pain (DC) Add. Discharge Instructions: 1. Stay home and quarantined away from others until your confirmatory COVID test is negative. That should be tmorrow. Return to ER for any concerns. All discharge instructions reviewed with patient and/or family. Voiced understanding. Work/School Note: Work Release Form Date Seen in the Emergency Department: Apr 20, 2020 Return to Work: Apr 20, 2020 Restrictions: Need Release from DARION Navarrete APRN Apr 20, 2020 19:00
[2020-04-20 19:02] LABS: BASOPHILS % (AUTO) 0 % (0-10); EOSINOPHILS # (AUTO) 0.1 10^3/uL (0.0-0.3); EOSINOPHILS % (AUTO) 1 % (0-10); HEMATOCRIT 39 % (40-54); HEMOGLOBIN 13.4 g/dL (13.3-17.7); LYMPHOCYTES # (AUTO) 1.9 10^3/uL (1.0-4.0); LYMPHOCYTES % (AUTO) 25 % (12-44); MEAN CORPUSCULAR HEMOGLOBIN 31 pg (25-34); MEAN CORPUSCULAR HGB CONC 34 g/dL (32-36); MEAN CORPUSCULAR VOLUME 91 fL (80-99); MEAN PLATELET VOLUME 8.9 fL (9.0-12.2); MONOCYTES # (AUTO) 0.3 10^3/uL (0.0-1.0); MONOCYTES % (AUTO) 4 % (0-12); NEUTROPHILS # (AUTO) 5.2 10^3/uL (1.8-7.8); NEUTROPHILS % (AUTO) 70 % (42-75); PLATELET COUNT 344 10^3/uL (130-400); WHITE BLOOD COUNT 7.5 10^3/uL (4.3-11.0)
--- NOTE | 2020-04-20 19:02 | NUR ---
Report from Lillie Conway RN.
[2020-04-20 19:24] LABS: ALANINE AMINOTRANSFERASE 23 U/L (0-55); ALBUMIN 4.5 GM/DL (3.2-4.5); ALKALINE PHOSPHATASE 45 U/L (40-136); BILIRUBIN,TOTAL 0.4 MG/DL (0.1-1.0); BUN/CREATININE RATIO 15; CALCIUM 8.8 MG/DL (8.5-10.1); CARBON DIOXIDE 25 MMOL/L (21-32); CHLORIDE 105 MMOL/L (98-107); CREATININE SERUM 0.81 MG/DL (0.60-1.30); GFR ESTIMATED > 60; GLUCOSE 119 MG/DL (70-105); POTASSIUM 3.6 MMOL/L (3.6-5.0); SODIUM 142 MMOL/L (135-145); TOTAL PROTEIN 6.7 GM/DL (6.4-8.2)
--- NOTE | 2020-04-20 19:29 | Diagnostic Imaging Report ---
INDICATION: Fever and chills. EXAMINATION: A single view of the chest was obtained. FINDINGS: There is normal heart size and vascularity. The lungs are clear. There is no effusion or pneumothorax. There is no bony abnormality. IMPRESSION: Normal chest. Dictated by: Dictated on workstation # [id number]
[2020-04-20 20:43] VITALS: BP 132/90
[2020-04-20] MEDS ORDERED: RT-ALBUTEROL INHALER HFA (VENTOLIN HFA) 18 GM IH SCH (22:00)
== END 2020-04-20 20:49 | disposition home or self-care (01) ==
LOC: EDUNIT# 18:04 → ER 18:05
DX: R07.9 Chest pain, unspecified (principal); G89.29 Other chronic pain; M54.9 Dorsalgia, unspecified; F17.210 Nicotine dependence, cigarettes, uncomplicated; Z88.5 Allergy status to narcotic agent; Z82.49 Family history of ischemic heart disease and other diseases of the circulatory system; Z20.828 Contact with and (suspected) exposure to other viral communicable diseases; Z79.891 Long term (current) use of opiate analgesic
CPT/HCPCS: 36415; 71045; 80053; 84484; 85025; 85379; 86141; 87635; 93005

== ENCOUNTER → 2020-04-26 | Outpatient (CLI) | payer OTHER | LOC: LABNPT 06:24 | PROVIDERS: ATTEND Orthopaedic Surgery Orthopaedic Surgery of the Spine | DX: Z01.812 Encounter for preprocedural laboratory examination (principal); U07.1 COVID-19 ==

== ENCOUNTER → 2020-05-01 | Outpatient (CLI) | payer OTHER ==
[2020-05-01 14:41] LABS: BASOPHILS % (AUTO) 1 % (0-10); EOSINOPHILS # (AUTO) 0.1 10^3/uL (0.0-0.3); EOSINOPHILS % (AUTO) 2 % (0-10); HEMATOCRIT 40 % (40-54); HEMOGLOBIN 13.5 g/dL (13.3-17.7); LYMPHOCYTES # (AUTO) 1.9 10^3/uL (1.0-4.0); LYMPHOCYTES % (AUTO) 28 % (12-44); MEAN CORPUSCULAR HEMOGLOBIN 31 pg (25-34); MEAN CORPUSCULAR HGB CONC 34 g/dL (32-36); MEAN CORPUSCULAR VOLUME 92 fL (80-99); MONOCYTES # (AUTO) 0.3 10^3/uL (0.0-1.0); MONOCYTES % (AUTO) 4 % (0-12); NEUTROPHILS # (AUTO) 4.5 10^3/uL (1.8-7.8); NEUTROPHILS % (AUTO) 66 % (42-75); PLATELET COUNT 336 10^3/uL (130-400); WHITE BLOOD COUNT 6.8 10^3/uL (4.3-11.0)
[2020-05-01 14:43] LABS: BILIRUBIN,URINE NEGATIVE (NEGATIVE); CLARITY,URINE CLEAR; COLOR,URINE YELLOW; GLUCOSE, URINE (UA) NEGATIVE (NEGATIVE); KETONES,URINE NEGATIVE (NEGATIVE); LEUKOCYTE ESTERASE ,URINE NEGATIVE (NEGATIVE); NITRITE,URINE NEGATIVE (NEGATIVE); PROTEIN,URINE NEGATIVE (NEGATIVE)
[2020-05-01 14:53] LABS: CHLORIDE 104 MMOL/L (98-107); SODIUM 140 MMOL/L (135-145)
[2020-05-01 14:54] LABS: CALCIUM 8.7 MG/DL (8.5-10.1); GLUCOSE 92 MG/DL (70-105)
[2020-05-01 14:56] LABS: CARBON DIOXIDE 25 MMOL/L (21-32)
[2020-05-01 14:58] LABS: CREATININE SERUM 0.76 MG/DL (0.60-1.30); GFR ESTIMATED > 60
[2020-05-01 14:59] LABS: BUN/CREATININE RATIO 20
[2020-05-01 15:05] LABS: PROTHROMBIN TIME PATIENT 13.1 SEC (12.2-14.7)
[2020-05-01 15:16] LABS: AMORPHOUS SEDIMENT,UR RARE AMOR URATES /LPF; BACTERIA,URINE NEGATIVE /HPF; WBC,URINE 0-2 /HPF
== END ==
LOC: LAB 14:21
PROVIDERS: ATTEND Orthopaedic Surgery Orthopaedic Surgery of the Spine
DX: M48.062 Spinal stenosis, lumbar region with neurogenic claudication (principal); M51.16 Intervertebral disc disorders with radiculopathy, lumbar region
CPT/HCPCS: 36415; 80048; 81000; 85025; 85610; 85730

== ENCOUNTER 2020-07-29 01:39 | Emergency (ER) | payer OTHER ==
[~2020-07-29] VITALS: Ht 177 cm; Wt 97.0 kg
[~2020-07-29 01:39] MED LIST changes: -CLIN300C11 PO; +CLIN300C12 PO; -LISI-552 PO; +LISI20TA26 PO
[2020-07-29] MEDS ORDERED: ONDANSETRON 4 MG/2 ML (SDV) Z0FRAN ONE (02:22)
[2020-07-29] MEDS ORDERED: LACTATED RINGERS 1,000 ML IV ONE ×2 (02:22→02:30)
[2020-07-29] MEDS ORDERED: ONDANSETRON 4 MG/2 ML (SDV) Z0FRAN IVP ONE (02:30)
[2020-07-29 02:40] LABS: BASOPHILS % (AUTO) 1 % (0-10); EOSINOPHILS # (AUTO) 0.2 10^3/uL (0.0-0.3); EOSINOPHILS % (AUTO) 3 % (0-10); HEMATOCRIT 43 % (40-54); HEMOGLOBIN 14.4 g/dL (13.3-17.7); LYMPHOCYTES # (AUTO) 1.5 10^3/uL (1.0-4.0); LYMPHOCYTES % (AUTO) 18 % (12-44); MEAN CORPUSCULAR HEMOGLOBIN 31 pg (25-34); MEAN CORPUSCULAR HGB CONC 34 g/dL (32-36); MEAN CORPUSCULAR VOLUME 90 fL (80-99); MEAN PLATELET VOLUME 9.2 fL (9.0-12.2); MONOCYTES # (AUTO) 0.4 10^3/uL (0.0-1.0); MONOCYTES % (AUTO) 5 % (0-12); NEUTROPHILS # (AUTO) 6.2 10^3/uL (1.8-7.8); NEUTROPHILS % (AUTO) 73 % (42-75); PLATELET COUNT 283 10^3/uL (130-400); WHITE BLOOD COUNT 8.5 10^3/uL (4.3-11.0)
--- NOTE | 2020-07-29 02:49 | ED GI ---
General Chief Complaint: Abdominal/GI Problems Stated Complaint: NAUSEA Nursing Triage Note: PT TO ED W/ C/O NAUSEA ET VOMITING ONSET 1500. DENIES C/O PAIN AT THIS TIME. DENIES COUGH, SOB, ELEVATED TEMP AT THIS TIME. Sepsis Screen: No Definite Risk Source of Information: Patient History of Present Illness Date Seen by Provider: Jul 29, 2020 Time Seen by Provider: 01:17 Initial Comments PT ARRIVES VIA POV FROM HOME C/O NAUSEA AND VOMITING SINCE 1500 THIS AFTERNOON HAS VOMITED APPROXIMATELY 6 TIMES--"CAN'T KEEP ANYTHING DOWN LAST FOOD INTAKE WAS AROUND 1700 THIS AFTERNOON--ATE CHEESEB[employer]GER FROM [employer] NO ABDOMINAL PAIN NO DIARRHEA--HAD NORMAL BM IN THE MORNING NO FEVER VOIDING A NORMAL AMOUNT--LAST VOID WAS 1 HOUR AGO C/O FATIGUE NO HISTORY OF GI PROBLEMS NO KNOWN SICK CONTACTS OR SUSPICIOUS FOODS PT HAD COVID-19 IN [facility]--POSITIVE TEST 04/20/20. NO HOSPITALIZATION OR SIGNIFICANT ILLNESS PT HAD LUMBAR SPINE SURGERY ABOUT 6 WEEKS AGO. NO PROBLEMS FROM THAT PT IS ON SUBOXONE FOR OPIATE ABUSE--STATES HE HAS BEEN CLEAN FOR A WEEK. PCP: SHAILESH HARRISON [place] Allergies and Home Medications Allergies Coded Allergies: tramadol (Verified Allergy, Intermediate, hives, 12/04/16) Home Medications Famotidine 40 Mg Tablet, 40 MG PO DAILY Prescribed by: ERNESTO ARCEO on 07/29/20357 Hydrocodone Bit/Acetaminophen 1 Each Tablet, 1 EACH PO QID PRN for PAIN, (Reported) Hydroxyzine HCl 25 Mg Tablet, 25 MG PO Q4H PRN for ANXIETY Prescribed by: DARION MURPHY on 11/07/19 1234 Ondansetron 4 Mg Tab.rapdis, 4 MG PO Q4H Prescribed by: ERNESTO ARCEO on 07/29/20357 Patient Home Medication List Home Medication List Reviewed: Yes Review of Systems Review of Systems Constitutional: no symptoms reported; No chills; diaphoresis; No dizziness, No fever; malaise; No weakness EENTM: No Nose Congestion, No Throat Pain Respiratory: No Symptoms Reported; Denies Cough, Denies Shortness of Air Cardiovascular: No Symptoms Reported; Denies Chest Pain Gastrointestinal: See HPI; Denies Abdominal Pain, Denies Constipated, Denies Diarrhea; Nausea, Poor Appetite, Poor Fluid Intake, Vomiting Genitourinary: No Symptoms Reported Musculoskeletal: no symptoms reported, see HPI Skin: no symptoms reported Psychiatric/Neurological: No Symptoms Reported; Denies Headache Endocrine: No Symptoms Reported Hematologic/Lymphatic: No Symptoms Reported Past Qcttupb-Cofpvw-Ihwync Hx Past Med/Social Hx: Reviewed and Corrections made Patient Social History Alcohol Use: Past History (HISTORY OF ABUSE/HEAVY USE IN [employer]) Drug of Choice: OPIATE ABUSE-ON SUBOXONE Smoking Status: Current Everyday Smoker (1 PPD) Type Used: Cigarettes Recent Infectious Disease Expo: No Recent Hopitalizations: No Immunizations Up To Date Tetanus Booster (TDap): Unknown PED Vaccines UTD: Yes Seasonal Allergies Seasonal Allergies: No Past Medical History Surgeries: Yes (BONE MARROW DONATED;R ANKLE X 2;R ACL REPAIR;L-SPINE SURGERY 06/2020) Orthopedic, Tonsillectomy Respiratory: No Cardiac: Yes Hypertension Neurological: Yes (CYST OF BRAIN--DX 2008--NO SURGERY--LAST CHECKED 2 YEARS AGO) Genitourinary: No Gastrointestinal: No Musculoskeletal: Yes (LUMBAR SPINE SURGERY 06/2020; RIGHT ANKLE SURGERY X 2; R ACL REPAIR) Chronic Back Pain Endocrine: No HEENT: No Hearing Impairment: Hard of Hearing Cancer: No Psychosocial: No Integumentary: No Blood Disorders: No Physical Exam Vital Signs Vital Signs - First Documented 07/29/20 01:50 Temp 35.9 Pulse 79 Resp 18 B/P (MAP) 129/89 (102) Pulse Ox 95 O2 Delivery Room Air Capillary Refill : Less Than 3 Seconds Height/Weight/BMI Height: 5'10.00" Weight: 210lbs. 0oz. 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, no motor/sensory deficits, alert, normal mood/affect, oriented x 3 Skin: normal color, warm/dry Procedures/Interventions Suture Size: 5-0 Progress/Results/Core Measures Results/Orders Lab Results Laboratory Tests Test 07/29/20 02:32 07/29/20 03:38 Range/Units White Blood Count 8.5 4.3-11.0 10^3/uL Red Blood Count 4.72 4.30-5.52 10^6/uL Hemoglobin 14.4 13.3-17.7 g/dL Hematocrit 43 40-54 % Mean Corpuscular Volume 90 80-99 fL Mean Corpuscular Hemoglobin 31 25-34 pg Mean Corpuscular Hemoglobin Concent 34 32-36 g/dL Red Cell Distribution Width 12.2 10.0-14.5 % Platelet Count 283 130-400 10^3/uL Mean Platelet Volume 9.2 9.0-12.2 fL Immature Granulocyte % (Auto) 0 % Neutrophils (%) (Auto) 73 42-75 % Lymphocytes (%) (Auto) 18 12-44 % Monocytes (%) (Auto) 5 0-12 % Eosinophils (%) (Auto) 3 0-10 % Basophils (%) (Auto) 1 0-10 % Neutrophils # (Auto) 6.2 1.8-7.8 10^3/uL Lymphocytes # (Auto) 1.5 1.0-4.0 10^3/uL Monocytes # (Auto) 0.4 0.0-1.0 10^3/uL Eosinophils # (Auto) 0.2 0.0-0.3 10^3/uL Basophils # (Auto) 0.0 0.0-0.1 10^3/uL Immature Granulocyte # (Auto) 0.0 0.0-0.1 10^3/uL Sodium Level 143 135-145 MMOL/L Potassium Level 4.5 3.6-5.0 MMOL/L Chloride Level 105 98-107 MMOL/L Carbon Dioxide Level 25 21-32 MMOL/L Anion Gap 13 5-14 MMOL/L Blood Urea Nitrogen 14 7-18 MG/DL Creatinine 0.79 0.60-1.30 MG/DL Estimat Glomerular Filtration Rate > 60 BUN/Creatinine Ratio 18 Glucose Level 98 70-105 MG/DL Calcium Level 9.0 8.5-10.1 MG/DL Corrected Calcium 8.6 8.5-10.1 MG/DL Magnesium Level 2.3 1.6-2.4 MG/DL Total Bilirubin 0.3 0.1-1.0 MG/DL Aspartate Amino Transf (AST/SGOT) 26 5-34 U/L Alanine Aminotransferase (ALT/SGPT) 33 0-55 U/L Alkaline Phosphatase 45 40-136 U/L Total Protein 7.4 6.4-8.2 GM/DL Albumin 4.5 3.2-4.5 GM/DL Amylase Level 42 25-125 U/L Lipase 29 8-78 U/L Urine Color YELLOW Urine Clarity CLEAR Urine pH 6.0 5-9 Urine Specific [place] 1.020 1.016-1.022 Urine Protein NEGATIVE NEGATIVE Urine Glucose (UA) NEGATIVE NEGATIVE Urine Ketones NEGATIVE NEGATIVE Urine Nitrite NEGATIVE NEGATIVE Urine Bilirubin NEGATIVE NEGATIVE Urine Urobilinogen 0.2 < = 1.0 MG/DL Urine Leukocyte Esterase NEGATIVE NEGATIVE Urine RBC (Auto) NEGATIVE NEGATIVE Urine RBC NONE /HPF Urine WBC 0-2 /HPF Urine Squamous Epithelial Cells RARE /HPF Urine Crystals NONE /LPF Urine Bacteria NEGATIVE /HPF Urine Casts NONE /LPF Urine Mucus NEGATIVE /LPF Urine Culture Indicated NO Urine Opiates Screen NEGATIVE NEGATIVE Urine Oxycodone Screen NEGATIVE NEGATIVE Urine Methadone Screen NEGATIVE NEGATIVE Urine Propoxyphene Screen NEGATIVE NEGATIVE Urine Barbiturates Screen NEGATIVE NEGATIVE Ur Tricyclic Antidepressants Screen NEGATIVE NEGATIVE Urine Phencyclidine Screen NEGATIVE NEGATIVE Urine Amphetamines Screen NEGATIVE NEGATIVE Urine Methamphetamines Screen NEGATIVE NEGATIVE Urine Benzodiazepines Screen NEGATIVE NEGATIVE Urine Cocaine Screen NEGATIVE NEGATIVE Urine Cannabinoids Screen NEGATIVE NEGATIVE My Orders Orders - ERNESTO ARCEO K DO Lactated Ringers (Lr 1000 Ml Iv Solution (07/29/20 02:22) Ondansetron Injection (Zofran Injectio (07/29/20 02:22) Ed Iv/Invasive Line Start (07/29/20 02:27) Amylase (07/29/20 02:27) Cbc With Automated Diff (07/29/20 02:27) Comprehensive Metabolic Panel (07/29/20 02:27) Drug Screen Stat (Urine) (07/29/20 02:27) Lipase (07/29/20 02:27) Magnesium (07/29/20 02:27) Ua Culture If Indicated (07/29/20 02:27) Ondansetron Injection (Zofran Injectio (07/29/20 02:30) Ed Iv/Invasive Line Start (07/29/20 02:27) Lactated Ringers (Lr 1000 Ml Iv Solution (07/29/20 02:30) Medications Given in ED Current Medications Medications Dose Ordered Sig/Alverto Route Start Time Stop Time Status Last Admin Dose Admin Lactated Ringer's 1,000 ml @ 0 mls/hr Q0M ONCE IV 07/29/20 02:30 07/29/20 02:31 DC 07/29/20 02:34 0 MLS/HR Ondansetron HCl 8 mg ONCE ONCE IVP 07/29/20 02:30 07/29/20 02:31 DC 07/29/20 02:32 8 MG Vital Signs/I&O 07/29/20 01:50 Temp 35.9 Pulse 79 Resp 18 B/P (MAP) 129/89 (102) Pulse Ox 95 O2 Delivery Room Air Blood Pressure Mean: 102 Progress Progress Note : Progress Note GIVEN IV FLUIDS AND ZOFRAN SLEPT FOR NEARLY THE ENTIRE ER STAY NO VOMITING OR ANY OTHER SYMPTOMS FOR REMAINDER OF ER STAY STATES HE FEELS COMPLETELY FINE AT DISMISSAL. Departure Impression Primary Impression: Nausea and vomiting Disposition: 01 HOME, SELF-CARE Condition: Improved Departure-Patient Inst. Referrals: TYREL DICKENS MD (Family) Primary Care Physician Patient Instructions: Nausea and Vomiting, Adult (DC) Add. Discharge Instructions: CLEAR LIQUIDS--WATER, BROTH, JELLO, GATORADE WHEN YOUR NAUSEA IS IMPROVED, ADD BRATS DIET TO CLEAR LIQUIDS--BANANAS, RICE, APPLESAUCE, TOAST, SALTINES FOLLOW UP WITH YOUR DR IN 2J-3 DAYS IF NO BETTER, RETURN TO ER IF WORSE All discharge instructions reviewed with patient and/or family. Voiced understanding. Scripts Ondansetron (Ondansetron Odt) 4 Mg Tab.rapdis 4 MG PO Q4H for Nausea/Vomiting, #10 TAB Prov: ERNESTO ARCEO DO 07/29/20 Famotidine (Pepcid) 40 Mg Tablet 40 MG PO DAILY, #10 TAB Prov: ERNESTO ARCEO K DO 07/29/20 ERNESTO ARCEO DO Jul 29, 2020 02:49
[2020-07-29 02:57] LABS: ALBUMIN 4.5 GM/DL (3.2-4.5); CHLORIDE 105 MMOL/L (98-107); POTASSIUM 4.5 MMOL/L (3.6-5.0); SODIUM 143 MMOL/L (135-145)
[2020-07-29 02:58] LABS: AMYLASE 42 U/L (25-125)
[2020-07-29 02:59] LABS: GLUCOSE 98 MG/DL (70-105)
[2020-07-29 03:00] LABS: TOTAL PROTEIN 7.4 GM/DL (6.4-8.2)
[2020-07-29 03:01] LABS: BILIRUBIN,TOTAL 0.3 MG/DL (0.1-1.0); CARBON DIOXIDE 25 MMOL/L (21-32)
[2020-07-29 03:03] LABS: ALKALINE PHOSPHATASE 45 U/L (40-136); CREATININE SERUM 0.79 MG/DL (0.60-1.30); GFR ESTIMATED > 60
[2020-07-29 03:04] LABS: BUN/CREATININE RATIO 18
[2020-07-29 03:06] LABS: ALANINE AMINOTRANSFERASE 33 U/L (0-55); MAGNESIUM 2.3 MG/DL (1.6-2.4)
[2020-07-29 03:07] LABS: LIPASE 29 U/L (8-78)
[2020-07-29 03:44] LABS: BILIRUBIN,URINE NEGATIVE (NEGATIVE); CLARITY,URINE CLEAR; COLOR,URINE YELLOW; GLUCOSE, URINE (UA) NEGATIVE (NEGATIVE); KETONES,URINE NEGATIVE (NEGATIVE); LEUKOCYTE ESTERASE ,URINE NEGATIVE (NEGATIVE); NITRITE,URINE NEGATIVE (NEGATIVE); PROTEIN,URINE NEGATIVE (NEGATIVE)
[2020-07-29 03:52] LABS: BACTERIA,URINE NEGATIVE /HPF; SQUAMOUS EPITHELIAL CELL,UR RARE /HPF; WBC,URINE 0-2 /HPF
[2020-07-29 03:57] LABS: AMPHETAMINE SCREEN, URINE NEGATIVE (NEGATIVE); BARBITURATE SCREEN URINE NEGATIVE (NEGATIVE); BENZODIAZEPINES SCREEN URINE NEGATIVE (NEGATIVE); CANNABINOID SCREEN, URINE NEGATIVE (NEGATIVE); COCAINE SCREEN URINE NEGATIVE (NEGATIVE); METHADONE STAT NEGATIVE (NEGATIVE); METHAMPHETAMINE SCREEN URINE S NEGATIVE (NEGATIVE); OPIATE SCREEN URINE NEGATIVE (NEGATIVE); OXYCODONE STAT NEGATIVE (NEGATIVE); PROPOXYPHENE STAT NEGATIVE (NEGATIVE); TRICYCLIC ANTIDEPRESSANTS SCRE NEGATIVE (NEGATIVE)
[2020-07-29] MEDS ORDERED: FAMO40TA72 PO (03:58)
[2020-07-29] MEDS ORDERED: ONDA4TAB11 PO (03:58)
[2020-07-29 04:05] VITALS: BP 130/89
== END 2020-07-29 04:05 | disposition home or self-care (01) ==
LOC: EDUNIT# 01:39 → ER 01:42
DX: R11.2 Nausea with vomiting, unspecified (principal); G89.29 Other chronic pain; M54.9 Dorsalgia, unspecified; F17.210 Nicotine dependence, cigarettes, uncomplicated; Z88.5 Allergy status to narcotic agent; Z79.891 Long term (current) use of opiate analgesic
CPT/HCPCS: 36415; 80053; 80306; 81000; 82150; 83690; 83735; 85025

== ENCOUNTER 2020-09-20 21:36 | Emergency (ER) | payer OTHER ==
[~2020-09-20] VITALS: Ht 177 cm; Wt 95.0 kg
[~2020-09-20 21:36] MED LIST changes: +FAMO40TA72 PO; +ONDA4TAB11 PO
[2020-09-20 23:14] LABS: ALANINE AMINOTRANSFERASE 16 U/L (0-55); ALBUMIN 4.2 GM/DL (3.2-4.5); ALKALINE PHOSPHATASE 41 U/L (40-136); BILIRUBIN,TOTAL 0.2 MG/DL (0.1-1.0); BUN/CREATININE RATIO 20; CALCIUM 8.4 MG/DL (8.5-10.1); CARBON DIOXIDE 25 MMOL/L (21-32); CHLORIDE 106 MMOL/L (98-107); CREATININE SERUM 0.84 MG/DL (0.60-1.30); GFR ESTIMATED > 60; GLUCOSE 77 MG/DL (70-105); POTASSIUM 3.7 MMOL/L (3.6-5.0); SODIUM 141 MMOL/L (135-145); TOTAL PROTEIN 6.4 GM/DL (6.4-8.2)
--- NOTE | 2020-09-20 23:19 | ED General ---
General Chief Complaint: Lower Extremity Stated Complaint: BILAT LEG/FEET SWELLING/BURNING Nursing Triage Note: PT TO ED W/ C/O BLE SWELLING ET BURNING ONSET X3 DAYS, WORSE TODAY. REPORTS HE ATTEMPTED TO GET IN W/ HIS DR TODAY W/O SUCCESS. DENIES INJURY. Nursing Sepsis Screen: No Definite Risk Source of Information: Patient Exam Limitations: No Limitations History of Present Illness Date Seen by Provider: Sep 20, 2020 Time Seen by Provider: 22:19 Initial Comments This 34-year-old gentleman presents to the emergency room with complaints of 4 days of progressive swelling of the lower extremities. He feels like the swelling goes all the way up to his abdomen. He has now developed a burning sensation of the plantar surface of his feet and pain is radiating up to both legs. Symptoms are equal bilaterally. He denies any history of heart failure. He denies shortness of breath or chest pain. He does have history of hy pertension for which he takes clonidine 3 times daily. He reports recent back surgery including lithectomy at L4-L5 for decompression. He denies eating excessive salt although he states he ate [employer] today. Allergies and Home Medications Allergies Coded Allergies: tramadol (Verified Allergy, Intermediate, hives, 12/04/16) Home Medications Famotidine 40 Mg Tablet, 40 MG PO DAILY Prescribed by: ERNESTO ARCEO on 07/29/20357 Hydrochlorothiazide 25 Mg Tablet, 25 MG PO DAILY Prescribed by: TAWANNA SANDS on 09/20/20 2348 Hydrocodone Bit/Acetaminophen 1 Each Tablet, 1 EACH PO QID PRN for PAIN, (Reported) Hydroxyzine HCl 25 Mg Tablet, 25 MG PO Q4H PRN for ANXIETY Prescribed by: DARION MURPHY on 11/07/19 1234 Ondansetron 4 Mg Tab.rapdis, 4 MG PO Q4H Prescribed by: ERNESTO ARCEO on 07/29/20 0358 Patient Home Medication List Home Medication List Reviewed: Yes Review of Systems Review of Systems Constitutional: no symptoms reported EENTM: no symptoms reported Respiratory: no symptoms reported Cardiovascular: see HPI Gastrointestinal: no symptoms reported Genitourinary: no symptoms reported Musculoskeletal: no symptoms reported Skin: no symptoms reported Psychiatric/Neurological: See HPI Hematologic/Lymphatic: No Symptoms Reported Immunological/Allergic: no symptoms reported Past Wxtskis-Lbamql-Udatkv Hx Past Med/Social Hx: Reviewed Nursing Past Med/Soc Hx Patient Social History Alcohol Use: Denies Use Drug of Choice: OPIATE ABUSE-ON SUBOXONE Smoking Status: Current Everyday Smoker Type Used: Cigarettes Recent Infectious Disease Expo: No Recent Hopitalizations: No Immunizations Up To Date Tetanus Booster (TDap): Unknown PED Vaccines UTD: Yes Seasonal Allergies Seasonal Allergies: No Past Medical History Surgeries: Yes (BONE MARROW DONATED;R ANKLE X 2;R ACL REPAIR;L-SPINE SURGERY 06/2020) Orthopedic, Tonsillectomy Respiratory: No Cardiac: Yes Hypertension Neurological: Yes (CYST OF BRAIN--DX 2008--NO SURGERY--LAST CHECKED 2 YEARS AGO) Genitourinary: No Gastrointestinal: No Musculoskeletal: Yes (LUMBAR SPINE SURGERY 06/2020; RIGHT ANKLE SURGERY X 2; R ACL REPAIR) Chronic Back Pain Endocrine: No HEENT: No Hearing Impairment: Hard of Hearing Cancer: No Psychosocial: No Integumentary: No Blood Disorders: No Physical Exam Vital Signs Vital Signs - First Documented 09/20/20 21:47 Temp 36.1 Pulse 82 Resp 20 B/P (MAP) 134/93 (107) Pulse Ox 95 O2 Delivery Room Air Capillary Refill : Less Than 3 Seconds Height, Weight, BMI Height: 5'10.00" Weight: 210lbs. 0oz. 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 Skin: Normal Color, Warm/Dry Procedures/Interventions Suture Size: 5-0 Progress/Results/Core Measures Suspected Sepsis Recent Fever Within 48 Hours: No Infection Criteria Present: None New/Unexplained Altered Menta: No Sepsis Screen: No Definite Risk SIRS Temperature: Pulse: 82 Respiratory Rate: 20 Blood Pressure 134 /93 Mean: 107 Laboratory Tests 09/20/20 22:35: Creatinine 0.84, Total Bilirubin 0.2 Results/Orders Lab Results Laboratory Tests Test 09/20/20 22:35 Range/Units Sodium Level 141 135-145 MMOL/L Potassium Level 3.7 3.6-5.0 MMOL/L Chloride Level 106 98-107 MMOL/L Carbon Dioxide Level 25 21-32 MMOL/L Anion Gap 10 5-14 MMOL/L Blood Urea Nitrogen 17 7-18 MG/DL Creatinine 0.84 0.60-1.30 MG/DL Estimat Glomerular Filtration Rate > 60 BUN/Creatinine Ratio 20 Glucose Level 77 70-105 MG/DL Calcium Level 8.4 L 8.5-10.1 MG/DL Corrected Calcium 8.2 L 8.5-10.1 MG/DL Total Bilirubin 0.2 0.1-1.0 MG/DL Aspartate Amino Transf (AST/SGOT) 14 5-34 U/L Alanine Aminotransferase (ALT/SGPT) 16 0-55 U/L Alkaline Phosphatase 41 40-136 U/L B-Type Natriuretic Peptide 48.4 <100.0 PG/ML Total Protein 6.4 6.4-8.2 GM/DL Albumin 4.2 3.2-4.5 GM/DL My Orders Orders - TAWANNA JOLLEY MD BNP (09/20/20 22:27) Comprehensive Metabolic Panel (09/20/20 22:27) Ed Iv/Invasive Line Start (09/20/20 22:27) Vital Signs/I&O 09/20/20 09/20/20 21:47 23:58 Temp 36.1 36.1 Pulse 82 74 Resp 20 16 B/P (MAP) 134/93 (107) 132/91 (107) Pulse Ox 95 97 O2 Delivery Room Air Room Air Capillary Refill : Less Than 3 Seconds Blood Pressure Mean: 107 Progress Note : Progress Note Work-up was essentially unremarkable. Patient was advised to work on his dietary selection and consume fewer salts. He was prescribed hydrochlorothiazide and advised to elevate his extremities. See discharge instructions for further discussion. He has an appointment scheduled with his PCP next week. Departure Impression Primary Impression: Lower extremity edema Disposition: HOME, SELF-CARE Condition: Stable Departure-Patient Inst. Decision time for Depature: 23:22 Referrals: TYREL DICKENS MD (PCP/Family) Primary Care Physician Patient Instructions: Dependent Edema (DC) Add. Discharge Instructions: Decrease your sodium (salt) intake. Do not add extra salt to your food. Be aware of hidden salt in foods such as fast foods, pickles, canned foods, etc. Drink plenty of clear liquids. Elevate your feet to the level of your heart as much as possible. Start hydrochlorothiazide as prescribed. This should help improve your swelling over the next several days. Follow-up with your primary care provider soon as possible for monitoring of your blood pressure and swelling. Walk often and avoid prolonged sedentary periods of time. Call with questions or concerns. Return to the emergency room if you have worsening symptoms despite following these instructions. All discharge instructions reviewed with patient and/or family. Voiced understanding. Scripts Hydrochlorothiazide (Hydrochlorothiazide) 25 Mg Tablet 25 MG PO DAILY, #30 TAB Prov: TAWANNA JOLLEY MD 09/20/20 Copy Copies To 1: TYREL DICKENS MD, JOSHUA T MD Sep 20, 2020 23:19
[2020-09-20] MEDS ORDERED: HYDR25TA4 PO (23:48)
[2020-09-20 23:58] VITALS: BP 132/91
== END 2020-09-20 23:58 | disposition home or self-care (01) ==
LOC: EDUNIT# 21:36 → ER 21:37
DX: R60.0 Localized edema (principal); I10 Essential (primary) hypertension; G89.29 Other chronic pain; M54.9 Dorsalgia, unspecified; F17.210 Nicotine dependence, cigarettes, uncomplicated; Z88.5 Allergy status to narcotic agent; Z79.891 Long term (current) use of opiate analgesic
CPT/HCPCS: 36415; 80053; 83880

== ENCOUNTER 2020-09-26 18:01 | Emergency (ER) | payer OTHER ==
[~2020-09-26] VITALS: Ht 177.8 cm; Wt 99.8 kg
[~2020-09-26 18:01] MED LIST changes: +HYDR25TA4 PO
[2020-09-26] MEDS ORDERED: LACTATED RINGERS 1,000 ML IV ONE ×2 (18:15→19:15)
--- NOTE | 2020-09-26 18:18 | ED General ---
General Stated Complaint: NAUSEA / VOMITTING / CONFUSED Source of Information: Patient, Old Records History of Present Illness Date Seen by Provider: Sep 26, 2020 Time Seen by Provider: 18:15 Initial Comments PT ARRIVES VIA POV FROM HOME C/O NAUSEA AND VOMITING AND "CONFUSION" STATES HE THINKS HE TOOK 6 EXTRA SUBOXONE TODAY, WOKE UP AND DIDN'T KNOW WHAT TIME IT WAS STATES HE THINKS HE TOOK THE EXTRA AROUND 0800 THIS AM STARTED FEELING DIZZY AND NAUSEATED THEN TOOK NARCAN 2 MG NASALLY AROUND NOON, AND WENT TO BED, WOKE UP AROUND 1530, AND BEGAN HAVING NAUSEA/VOMITING SUPPOSED TO TAKE SUBOXONE 6 MG IN AM, 4 MG IN PM DENIES ANY SUICIDAL THOUGHTS OR INTENT PT SEEN HERE 09/20/20 FOR LEG SWELLING AFTER EATING A HIGH SODIUM MEAL--GIVEN DIURETIC AND THOSE SYMPTOMS HAVE NOT RETURNED PT HAD COVID-19 IN APRIL 2020--NO HOSPITALIZATION OR SIGNIFICANT ILLNESS PCP: SHAILESH HARRISON [place] Allergies and Home Medications Allergies Coded Allergies: tramadol (Verified Allergy, Intermediate, hives, 12/04/16) Home Medications Famotidine 40 Mg Tablet, 40 MG PO DAILY Prescribed by: ERNESTO ARCEO on 07/29/20 0358 Hydrochlorothiazide 25 Mg Tablet, 25 MG PO DAILY Prescribed by: TAWANNA SANDS on 09/20/20 2348 Hydrocodone Bit/Acetaminophen 1 Each Tablet, 1 EACH PO QID PRN for PAIN, (Reported) Hydroxyzine HCl 25 Mg Tablet, 25 MG PO Q4H PRN for ANXIETY Prescribed by: DARION MURPHY on 11/07/19 1234 Ondansetron 4 Mg Tab.rapdis, 4 MG PO Q4H Prescribed by: ERNESTO ARCEO on 07/29/20 0358 Patient Home Medication List Home Medication List Reviewed: Yes Review of Systems Review of Systems Constitutional: no symptoms reported EENTM: no symptoms reported Respiratory: no symptoms reported Cardiovascular: no symptoms reported Gastrointestinal: see HPI; No abdominal pain, No constipation; nausea, vomiting Genitourinary: no symptoms reported Musculoskeletal: no symptoms reported Skin: no symptoms reported Psychiatric/Neurological: See HPI Hematologic/Lymphatic: No Symptoms Reported Immunological/Allergic: no symptoms reported Past Fjegsol-Hnqiua-Mwwwxv Hx Past Med/Social Hx: Reviewed and Corrections made Patient Social History Alcohol Use: Past History Drug of Choice: OPIATE ABUSE-ON SUBOXONE Smoking Status: Current Everyday Smoker Type Used: Cigarettes Recent Hopitalizations: No Substance type: Opiates/Opioids, Misuse of prescript meds Immunizations Up To Date Tetanus Booster (TDap): Unknown PED Vaccines UTD: Yes Seasonal Allergies Seasonal Allergies: No Past Medical History Surgeries: Yes (BONE MARROW DONATED;R ANKLE X 2;R ACL REPAIR;L-SPINE SURGERY 06/2020) Orthopedic, Tonsillectomy Respiratory: Yes (COVID-19 04/2020--NO HOSPITALIZATION OR SEVERE ILLNESS) Cardiac: Yes Hypertension Neurological: Yes (CYST OF BRAIN--DX 2008--NO SURGERY--LAST CHECKED 2 YEARS AGO) Genitourinary: No Gastrointestinal: No Musculoskeletal: Yes (LUMBAR SPINE SURGERY 06/2020; RIGHT ANKLE SURGERY X 2; R ACL REPAIR) Chronic Back Pain Endocrine: No HEENT: Yes Hearing Impairment: Hard of Hearing Cancer: No Psychosocial: Yes (OPIATE ABUSE) Integumentary: No Blood Disorders: No Family Medical History SOCIAL HISTORY: -ETOH--HISTORY OF ABUSE/HEAVY USE IN [email or web address] -DRUGS--OPIATE ABUSE--ON SUBOXONE -SMOKES 1 PPD PAST SURGICAL HISTORY: -BONE MARROW DONATED -RIGHT ANKLE SURGERY X 2 -RIGHT KNEE ACL REPAIR -LUMBAR SPINE SURGERY 06/2020 -TONSILLECTOMY Physical Exam Vital Signs Vital Signs - First Documented 09/26/20 09/26/20 18:15 21:15 Temp 36.5 Pulse 90 Resp 17 B/P (MAP) 132/102 (112) Pulse Ox 98 O2 Delivery Room Air Capillary Refill : Height, Weight, BMI Height: 5'10.00" Weight: 210lbs. 0oz. 95.119728wu; 30.00 BMI Method:Stated General Appearance: No Apparent Distress, WD/WN, Other (DOES NOT APPEAR ILL OR TO BE IN ANY DISCOMFORT OR DISTRESS) HEENT: Moist Mucous Membranes Respiratory: Normal Breath Sounds, No Accessory Muscle Use, No Respiratory Distress Cardiovascular: Regular Rate, Rhythm, No Murmur Gastrointestinal: Non Tender, Soft Extremity: Normal Inspection Neurologic/Psychiatric: Alert, Oriented x3, No Motor/Sensory Deficits, backwinder II- XII Norm as Tested; No Abnormal Cerebellar Tests; Other (NO CONFUSION) Skin: Normal Color, Warm/Dry Procedures/Interventions Suture Size: 5-0 Progress/Results/Core Measures Suspected Sepsis SIRS Temperature: Pulse: Respiratory Rate: Laboratory Tests 09/26/20 18:17: White Blood Count 9.0 Blood Pressure / Mean: Laboratory Tests 09/26/20 18:17: Creatinine 0.97, Platelet Count 421H, Total Bilirubin 0.5 Results/Orders Lab Results Laboratory Tests Test 09/26/20 18:17 09/26/20 20:40 Range/Units White Blood Count 9.0 4.3-11.0 10^3/uL Red Blood Count 5.03 4.30-5.52 10^6/uL Hemoglobin 15.6 13.3-17.7 g/dL Hematocrit 47 40-54 % Mean Corpuscular Volume 93 80-99 fL Mean Corpuscular Hemoglobin 31 25-34 pg Mean Corpuscular Hemoglobin Concent 34 32-36 g/dL Red Cell Distribution Width 13.5 10.0-14.5 % Platelet Count 421 H 130-400 10^3/uL Mean Platelet Volume 9.1 9.0-12.2 fL Immature Granulocyte % (Auto) 0 % Neutrophils (%) (Auto) 74 42-75 % Lymphocytes (%) (Auto) 18 12-44 % Monocytes (%) (Auto) 6 0-12 % Eosinophils (%) (Auto) 2 0-10 % Basophils (%) (Auto) 0 0-10 % Neutrophils # (Auto) 6.6 1.8-7.8 10^3/uL Lymphocytes # (Auto) 1.6 1.0-4.0 10^3/uL Monocytes # (Auto) 0.5 0.0-1.0 10^3/uL Eosinophils # (Auto) 0.2 0.0-0.3 10^3/uL Basophils # (Auto) 0.0 0.0-0.1 10^3/uL Immature Granulocyte # (Auto) 0.0 0.0-0.1 10^3/uL Sodium Level 141 135-145 MMOL/L Potassium Level 3.7 3.6-5.0 MMOL/L Chloride Level 101 98-107 MMOL/L Carbon Dioxide Level 23 21-32 MMOL/L Anion Gap 17 H 5-14 MMOL/L Blood Urea Nitrogen 18 7-18 MG/DL Creatinine 0.97 0.60-1.30 MG/DL Estimat Glomerular Filtration Rate > 60 BUN/Creatinine Ratio 19 Glucose Level 115 H 70-105 MG/DL Calcium Level 9.9 8.5-10.1 MG/DL Corrected Calcium 8.5-10.1 MG/DL Magnesium Level 2.4 1.6-2.4 MG/DL Total Bilirubin 0.5 0.1-1.0 MG/DL Aspartate Amino Transf (AST/SGOT) 14 5-34 U/L Alanine Aminotransferase (ALT/SGPT) 17 0-55 U/L Alkaline Phosphatase 56 40-136 U/L Ammonia 40 H 11-32 UMOL/L Total Protein 8.4 H 6.4-8.2 GM/DL Albumin 5.4 H 3.2-4.5 GM/DL Amylase Level 38 25-125 U/L Lipase 30 8-78 U/L Salicylates Level < 5.0 L 5.0-20.0 MG/DL Acetaminophen Level < 10 L 10-30 UG/ML Serum Alcohol < 10 <10 MG/DL Coronavirus 2019 ([place]) Negative Negative Urine Color YELLOW Urine Clarity CLEAR Urine pH 5.5 5-9 Urine Specific [place] 1.025 H 1.016-1.022 Urine Protein NEGATIVE NEGATIVE Urine Glucose (UA) NEGATIVE NEGATIVE Urine Ketones NEGATIVE NEGATIVE Urine Nitrite NEGATIVE NEGATIVE Urine Bilirubin NEGATIVE NEGATIVE Urine Urobilinogen 0.2 < = 1.0 MG/DL Urine Leukocyte Esterase NEGATIVE NEGATIVE Urine RBC (Auto) NEGATIVE NEGATIVE Urine RBC NONE /HPF Urine WBC 2-5 /HPF Urine Squamous Epithelial Cells 0-2 /HPF Urine Crystals NONE /LPF Urine Bacteria NEGATIVE /HPF Urine Casts PRESENT /LPF Urine Granular Casts 5-10 H /LPF Urine Mucus SMALL H /LPF Urine Culture Indicated NO Urine Opiates Screen NEGATIVE NEGATIVE Urine Oxycodone Screen NEGATIVE NEGATIVE Urine Methadone Screen NEGATIVE NEGATIVE Urine Propoxyphene Screen NEGATIVE NEGATIVE Urine Barbiturates Screen NEGATIVE NEGATIVE Ur Tricyclic Antidepressants Screen NEGATIVE NEGATIVE Urine Phencyclidine Screen NEGATIVE NEGATIVE Urine Amphetamines Screen NEGATIVE NEGATIVE Urine Methamphetamines Screen NEGATIVE NEGATIVE Urine Benzodiazepines Screen NEGATIVE NEGATIVE Urine Cocaine Screen NEGATIVE NEGATIVE Urine Cannabinoids Screen NEGATIVE NEGATIVE My Orders Orders - ERNESTO ARCEO DO Accucheck Stat ONCE (09/26/20 18:09) Ed Iv/Invasive Line Start (09/26/20 18:09) Ekg Tracing (09/26/20 18:09) Monitor-Rhythm Ecg Trace Only (09/26/20 18:09) Acetaminophen (09/26/20 18:09) Alcohol (09/26/20 18:09) Ammonia (09/26/20 18:09) Amylase (09/26/20 18:09) Cbc With Automated Diff (09/26/20 18:09) Comprehensive Metabolic Panel (09/26/20 18:09) Drug Screen Stat (Urine) (09/26/20 18:09) Lipase (09/26/20 18:09) Magnesium (09/26/20 18:09) Salicylate (09/26/20 18:09) Ua Culture If Indicated (09/26/20 18:09) Covid 19 Inhouse Test (09/26/20 18:09) Ed Iv/Invasive Line Start (09/26/20 18:09) Lactated Ringers (Lr 1000 Ml Iv Solution (09/26/20 18:15) Ondansetron Injection (Zofran Injectio (09/26/20 19:15) Ed Iv/Invasive Line Start (09/26/20 19:15) Lactated Ringers (Lr 1000 Ml Iv Solution (09/26/20 19:15) Scopolamine Patch (Transderm-Scop Patch) (09/26/20 19:45) Promethazine Injection (Phenergan Injec (09/26/20 19:45) Diphenhydramine Injection (Benadryl Inje (09/26/20 19:45) Medications Given in ED Current Medications Medications Dose Ordered Sig/Alverto Route Start Time Stop Time Status Last Admin Dose Admin Diphenhydramine HCl 25 mg ONCE ONCE IVP 09/26/20 19:45 09/26/20 19:46 DC 09/26/20 20:02 25 MG Lactated Ringer's 1,000 ml @ 0 mls/hr Q0M ONCE IV 09/26/20 18:15 09/26/20 18:16 DC 09/26/20 18:30 999 MLS/HR Lactated Ringer's 1,000 ml @ 0 mls/hr Q0M ONCE IV 09/26/20 19:15 09/26/20 19:17 DC 09/26/20 19:29 0 MLS/HR Ondansetron HCl 8 mg ONCE ONCE IVP 09/26/20 19:15 09/26/20 19:17 DC 09/26/20 19:29 8 MG Promethazine HCl 25 mg ONCE ONCE IVP 09/26/20 19:45 09/26/20 19:46 DC 09/26/20 20:00 25 MG Scopolamine 1.5 mg ONCE ONCE TD 09/26/20 19:45 09/26/20 19:46 DC 09/26/20 19:59 1.5 MG Vital Signs/I&O 09/26/20 09/26/20 18:15 21:15 Temp 36.5 Pulse 90 97 Resp 17 16 B/P (MAP) 132/102 (112) 116/77 Pulse Ox 98 O2 Delivery Room Air 09/27/20 00:00 Intake Total 2000 ml Balance 2000 ml Capillary Refill : Progress Note : Progress Note GIVEN IV FLUIDS, ZOFRAN, PHENERGAN + BENADRYL AND SCOPOLAMINE NO VOMITING DURING ER STAY SLEPT THROUGH MOST OF ER STAY--EASILY AWAKENS ECG Initial ECG Impression Date: Sep 26, 2020 Initial ECG Impression Time: 20:05 Initial ECG Rate: 70 Initial ECG Rhythm: Normal Sinus Departure Impression Primary Impression: EXCESSIVE USE OF SUBOXONE Additional Impression: NAUSEA AND VOMITING DUE TO EXCESSIVE MEDICATION USE AND NARCAN EFFECT Disposition: 01 HOME, SELF-CARE Condition: Improved Departure-Patient Inst. Referrals: NO,LOCAL PHYSICIAN (PCP/Family) Primary Care Physician Patient Instructions: Prescription Drug Abuse (DC) Add. Discharge Instructions: DO NOT TAKE MORE THAN PRESCRIBED DOSE OF MEDICATION CLEAR LIQUIDS TODAY--WATER, BROTH, JELLO, GATORADE TOMORROW ADD BRATS DIET TO CLEAR LIQUIDS--BANANAS, RICE, APPLESAUCE, TOAST, SALTINES THEN GRADUALLY ADVANCE TO REGULAR DIET FOLLOW UP WITH YOUR DR TOMORROW IF NO BETTER ERNESTO ARCEO DO Sep 26, 2020 18:18
[2020-09-26 18:57] LABS: BASOPHILS % (AUTO) 0 % (0-10); EOSINOPHILS # (AUTO) 0.2 10^3/uL (0.0-0.3); EOSINOPHILS % (AUTO) 2 % (0-10); HEMATOCRIT 47 % (40-54); HEMOGLOBIN 15.6 g/dL (13.3-17.7); LYMPHOCYTES # (AUTO) 1.6 10^3/uL (1.0-4.0); LYMPHOCYTES % (AUTO) 18 % (12-44); MEAN CORPUSCULAR HEMOGLOBIN 31 pg (25-34); MEAN CORPUSCULAR HGB CONC 34 g/dL (32-36); MEAN CORPUSCULAR VOLUME 93 fL (80-99); MEAN PLATELET VOLUME 9.1 fL (9.0-12.2); MONOCYTES # (AUTO) 0.5 10^3/uL (0.0-1.0); MONOCYTES % (AUTO) 6 % (0-12); NEUTROPHILS # (AUTO) 6.6 10^3/uL (1.8-7.8); NEUTROPHILS % (AUTO) 74 % (42-75); PLATELET COUNT 421 10^3/uL (130-400)
[2020-09-26 19:05] LABS: ALBUMIN 5.4 GM/DL (3.2-4.5); CHLORIDE 101 MMOL/L (98-107); POTASSIUM 3.7 MMOL/L (3.6-5.0); SODIUM 141 MMOL/L (135-145)
[2020-09-26 19:06] LABS: CALCIUM 9.9 MG/DL (8.5-10.1)
[2020-09-26 19:07] LABS: AMYLASE 38 U/L (25-125); GLUCOSE 115 MG/DL (70-105)
[2020-09-26 19:08] LABS: AMMONIA 40 UMOL/L (11-32); CARBON DIOXIDE 23 MMOL/L (21-32); TOTAL PROTEIN 8.4 GM/DL (6.4-8.2)
[2020-09-26 19:09] LABS: BILIRUBIN,TOTAL 0.5 MG/DL (0.1-1.0)
[2020-09-26 19:11] LABS: ALKALINE PHOSPHATASE 56 U/L (40-136); CREATININE SERUM 0.97 MG/DL (0.60-1.30); GFR ESTIMATED > 60
[2020-09-26 19:13] LABS: BUN/CREATININE RATIO 19
[2020-09-26 19:14] LABS: ALANINE AMINOTRANSFERASE 17 U/L (0-55); MAGNESIUM 2.4 MG/DL (1.6-2.4); SALICYLATE < 5.0 MG/DL (5.0-20.0)
[2020-09-26] MEDS ORDERED: ONDANSETRON 4 MG/2 ML (SDV) Z0FRAN IVP ONE (19:15)
[2020-09-26 19:16] LABS: LIPASE 30 U/L (8-78)
[2020-09-26 19:18] LABS: ACETAMINOPHEN < 10 UG/ML (10-30)
[2020-09-26] MEDS ORDERED: SCOPOLAMINE 1.5 MG (TRANSDERM-SCOP) PATCH TD ONE (19:45)
[2020-09-26] MEDS ORDERED: PROMETHAZINE INJ 25 MG/ML (PHENERGAN) AMP IVP ONE (19:45)
[2020-09-26] MEDS ORDERED: diphenhydrAMINE 50 MG/ML INJ (BENADRYL) IVP ONE (19:45)
[2020-09-26 20:48] LABS: BILIRUBIN,URINE NEGATIVE (NEGATIVE); CLARITY,URINE CLEAR; COLOR,URINE YELLOW; GLUCOSE, URINE (UA) NEGATIVE (NEGATIVE); KETONES,URINE NEGATIVE (NEGATIVE); LEUKOCYTE ESTERASE ,URINE NEGATIVE (NEGATIVE); NITRITE,URINE NEGATIVE (NEGATIVE); PH,URINE 5.5 (5-9); PROTEIN,URINE NEGATIVE (NEGATIVE)
[2020-09-26 20:56] LABS: BACTERIA,URINE NEGATIVE /HPF; SQUAMOUS EPITHELIAL CELL,UR 0-2 /HPF
[2020-09-26 20:59] LABS: AMPHETAMINE SCREEN, URINE NEGATIVE (NEGATIVE); BARBITURATE SCREEN URINE NEGATIVE (NEGATIVE); BENZODIAZEPINES SCREEN URINE NEGATIVE (NEGATIVE); CANNABINOID SCREEN, URINE NEGATIVE (NEGATIVE); COCAINE SCREEN URINE NEGATIVE (NEGATIVE); METHAMPHETAMINE SCREEN URINE S NEGATIVE (NEGATIVE); OPIATE SCREEN URINE NEGATIVE (NEGATIVE)
[2020-09-26 21:00] LABS: METHADONE STAT NEGATIVE (NEGATIVE); OXYCODONE STAT NEGATIVE (NEGATIVE); PROPOXYPHENE STAT NEGATIVE (NEGATIVE); TRICYCLIC ANTIDEPRESSANTS SCRE NEGATIVE (NEGATIVE)
[2020-09-26 21:15] VITALS: BP 116/77
== END 2020-09-26 21:15 | disposition home or self-care (01) ==
LOC: EDUNIT# 18:01 → ER 18:03
DX: R11.2 Nausea with vomiting, unspecified (principal); G89.29 Other chronic pain; M54.9 Dorsalgia, unspecified; I10 Essential (primary) hypertension; F17.210 Nicotine dependence, cigarettes, uncomplicated; Z88.5 Allergy status to narcotic agent; Z86.16 Personal history of COVID-19; Z20.822 Contact with and (suspected) exposure to COVID-19; Z79.891 Long term (current) use of opiate analgesic
CPT/HCPCS: 36415; 80053; 80306; 80320; 80329; 81000; 82140; 82150; 83690; 83735; 85025; 87635; 93005; 93041

== ENCOUNTER 2021-09-22 12:01 | Emergency (ER) | payer OTHER ==
[~2021-09-22] VITALS: Ht 177 cm; Wt 91.0 kg
[~2021-09-22 12:01] MED LIST changes: +CLIN-144 PO; -CLIN300C12 PO
--- NOTE | 2021-09-22 13:58 | ED General ---
General Stated Complaint: SUBOXONE WITHDRAWL Source of Information: Patient Exam Limitations: No Limitations History of Present Illness Date Seen by Provider: Sep 22, 2021 Time Seen by Provider: 13:57 Initial Comments Patient is a 35-year-old male presents ED for Suboxone and opiate withdrawal. Patient is seen at the [facility]. Patient did not receive his Suboxone on Thursday. He states since then has had some nausea, sweating, diarrhea, fatigue and mild tremoring. Patient states he is requesting a refill of his Suboxone. Patient denies of any hallucinations, agitation, or restlessness. Allergies and Home Medications Allergies Coded Allergies: tramadol (Verified Allergy, Intermediate, hives, 12/04/16) Patient Home Medication List Home Medication List Reviewed: Yes Famotidine (Pepcid) 40 Mg Tablet, 40 MG PO DAILY Prescribed by: ERNESTO ARCEO on 07/29/20 0358 Hydrochlorothiazide (Hydrochlorothiazide) 25 Mg Tablet, 25 MG PO DAILY Prescribed by: TAWANNA SANDS on 09/20/20 2348 Hydrocodone Bit/Acetaminophen (HYDROcodone/APAP 10/325 TABLET) 1 Each Tablet, 1 EACH PO QID PRN for PAIN, (Reported) Entered as Reported by: PRO GOODSON on 02/14/15 1637 Hydroxyzine HCl (Hydroxyzine HCl) 25 Mg Tablet, 25 MG PO Q4H PRN for ANXIETY Prescribed by: DARION MURPHY on 11/07/19 1234 Ondansetron (Ondansetron Odt) 4 Mg Tab.rapdis, 4 MG PO Q4H Prescribed by: ERNESTO ARCEO on 07/29/20 0358 Oxycodone HCl (Oxycodone HCl ER) 30 Mg Tab.er.12h, 30 MG PO, (Reported) Entered as Reported by: ANA SCHULZ on 11/07/19 1122 Review of Systems Review of Systems Constitutional: chills; No diaphoresis; malaise, weakness EENTM: No blurred vision, No double vision, No mouth pain, No mouth swelling Respiratory: No cough Genitourinary: No decreased output, No discharge Musculoskeletal: No back pain; muscle pain Skin: No change in color, No change in hair/nails All Other Systems Reviewed Negative Unless Noted: Yes Past Dxtyvxk-Mcqmko-Lozwir Hx Immunizations Up To Date Tetanus Booster (TDap): Unknown PED Vaccines UTD: Yes Seasonal Allergies Seasonal Allergies: No Past Medical History Surgeries: Yes (BONE MARROW DONATED;R ANKLE X 2;R ACL REPAIR;L-SPINE SURGERY 06/2020) Orthopedic, Tonsillectomy Respiratory: Yes (COVID-19 04/2020--NO HOSPITALIZATION OR SEVERE ILLNESS) Currently Using CPAP: No Currently Using BIPAP: No Cardiac: Yes Hypertension Neurological: Yes (CYST OF BRAIN--DX 2008--NO SURGERY--LAST CHECKED 2 YEARS AGO) Genitourinary: No Gastrointestinal: No Musculoskeletal: Yes (LUMBAR SPINE SURGERY 06/2020; RIGHT ANKLE SURGERY X 2; R ACL REPAIR) Chronic Back Pain Endocrine: No HEENT: Yes Hearing Impairment: Hard of Hearing Cancer: No Psychosocial: Yes (OPIATE ABUSE) Integumentary: No Blood Disorders: No Family Medical History SOCIAL HISTORY: -ETOH--HISTORY OF ABUSE/HEAVY USE IN [employer] -DRUGS--OPIATE ABUSE--ON SUBOXONE -SMOKES 1 PPD PAST SURGICAL HISTORY: -BONE MARROW DONATED -RIGHT ANKLE SURGERY X 2 -RIGHT KNEE ACL REPAIR -LUMBAR SPINE SURGERY 06/2020 -TONSILLECTOMY Physical Exam Vital Signs Vital Signs - First Documented 09/22/21 13:40 Temp 36.8 Pulse 93 Resp 18 B/P (MAP) 153/98 (116) Pulse Ox 96 Capillary Refill : Height, Weight, BMI Height: 5'10.00" Weight: 210lbs. 0oz. 95.619279ny; 31.00 BMI Method:Stated General Appearance: No Apparent Distress, WD/WN Eyes: Bilateral Eye Normal Inspection, Bilateral Eye PERRL, Bilateral Eye Abnormal EOM HEENT: PERRL/EOMI, TMs Normal, Normal ENT Inspection Neck: Full Range of Motion, Normal Inspection, Non Tender, Supple Respiratory: Chest Non Tender, Lungs Clear, Normal Breath Sounds, No Accessory Muscle Use Cardiovascular: Regular Rate, Rhythm, No Edema, No Gallop, No JVD Gastrointestinal: Normal Bowel Sounds, No Organomegaly, No Pulsatile Mass, Non Tender, Soft Extremity: Normal Capillary Refill, Normal Inspection, Normal Range of Motion Neurologic/Psychiatric: Alert, Oriented x3, Normal Mood/Affect Skin: Normal Color, Warm/Dry Procedures/Interventions Suture Size: 5-0 Progress/Results/Core Measures Suspected Sepsis SIRS Temperature: Pulse: Respiratory Rate: Blood Pressure / Mean: Results/Orders Vital Signs/I&O 09/22/21 13:40 Temp 36.8 Pulse 93 Resp 18 B/P (MAP) 153/98 (116) Pulse Ox 96 Capillary Refill : Departure Communication (Admissions) Patient is requesting Suboxone. Patient states he is seen at the [facility] but did not receive his prescription on Thursday. Patient with mild to moderate withdrawal symptoms. Vital signs stable. Did discuss trying other medications such as clonidine, benzos to manage symptoms with hydration. Discussed lab work. [facility] Patient requested be discharged without any further work-up. Discussed following up with [facility]. Impression Primary Impression: Acute opioid withdrawal Disposition: HOME, SELF-CARE Condition: Stable Departure-Patient Inst. Decision time for Depature: 13:57 Referrals: [facility]/POLI GONZALEZ,LOCAL PHYSICIAN (PCP) Primary Care Physician Patient Instructions: Drug Withdrawal ED ISIDRA CALDERON Sep 22, 2021 13:58
[2021-09-22 18:12] VITALS: BP 153/98
== END 2021-09-22 14:02 | disposition home or self-care (01) ==
LOC: EDUNIT# 12:01 → ER 12:02
DX: F11.23 Opioid dependence with withdrawal (principal)
CPT/HCPCS: 99281